=== PATIENT | male | born 1945 | race Caucasian/White ===

== ENCOUNTER 2020-08-01 12:29 | Inpatient (IN) | payer MEDICARE, OTHER ==
[~2020-08-01] VITALS: Ht 172.7 cm; Wt 63.2 kg
--- NOTE | 2020-08-01 12:56 | PHYS DOC ---
Adult General Chief Complaint Chief Complaint: ALTERED MENTAL STATUS HPI HPI Patient is a 74-year-old male presents to the emergency department via EMS. Limited HPI related to patient's history of dementia he related to alcoholism with possible Alzheimer's. HPI given by EMS lens examiner. EMS lens examiner states that patient was admitted to [facility] on 07/30/2020 from [facility] for dementia. EMS lens examiner states they were given a report from [facility] staff that the patient fell twice yesterday and was speaking gibberish incomprehensible words at this morning so they alerted the facility physician who gave him an order to send to the emergency department for evaluation. EMS lens examiner denies knowledge of patient having had or any loss of consciousness. Patient complains of pain all over, denies chest pain, denies shortness of breath, denies congestion. Patient is alert to self only. Patient denies falling, patient is unsure why he was transported to the emergency department today. ED nurse contacted [facility] staff whom stated patient was speaking gibberish this morning, had 2 unwitnessed falls yesterday, was unsure if hit head or not, denies any loss of consciousness of the patient. Review of Systems Review of Systems 14 body systems of review of systems have been reviewed. See HPI for pertinent positives and negative responses, otherwise all other systems are negative, nonpertinent or noncontributory. Physical Exam Physical Exam Constitutional: Well developed, well nourished, no acute distress, non-toxic appearance. Patient is alert to self only. HENT: Normocephalic, atraumatic, bilateral external ears normal, oropharynx moist, no oral exudates, nose normal. Eyes: PERRLA, EOMI, conjunctiva normal, no discharge. No lymphadenopathy noted of the head and neck. Neck: Normal range of motion, no tenderness, supple, no stridor. No nuchal rigidity, no meningismus signs. Cardiovascular:Heart rate regular rhythm, no murmur consultation. Lungs & Thorax: Bilateral breath sounds clear to auscultation all lung cruz. Abdomen: Bowel sounds normal, soft, no tenderness, no masses, no pulsatile masses. Skin: Warm, dry, no erythema, no rash. Back: No tenderness, no CVA tenderness. Except for pain elicited to palpation in coccyx area, skin surface is intact. No crepitus appreciated, no ecchymosis appreciated, no swelling appreciated. Extremities: No tenderness, no cyanosis, no clubbing, ROM intact, no edema. Gait was not assessed, patient in bed. Neurologic: Alert and oriented to self only, normal motor function, normal sensory function, no focal deficits noted. Patient speaking in full sentences, no incomprehensible words appreciated. Psychologic: Affect normal, judgement abnormal, mood normal. Current Patient Data Lab Results Laboratory Tests Test 08/01/20 12:57 White Blood Count 9.5 x10^3/uL Red Blood Count 4.10 x10^6/uL Hemoglobin 14.0 g/dL Hematocrit 41.4 % Mean Corpuscular Volume 101 fL Mean Corpuscular Hemoglobin 34 pg Mean Corpuscular Hemoglobin Concent 34 g/dL Red Cell Distribution Width 12.9 % Platelet Count 330 x10^3/uL Neutrophils (%) (Auto) 73 % Lymphocytes (%) (Auto) 16 % Monocytes (%) (Auto) 11 % Eosinophils (%) (Auto) 0 % Basophils (%) (Auto) 0 % Neutrophils # (Auto) 6.9 x10^3uL Lymphocytes # (Auto) 1.5 x10^3/uL Monocytes # (Auto) 1.1 x10^3/uL Eosinophils # (Auto) 0.0 x10^3/uL Basophils # (Auto) 0.0 x10^3/uL Sodium Level 126 mmol/L Potassium Level 5.0 mmol/L Chloride Level 91 mmol/L Carbon Dioxide Level 24 mmol/L Anion Gap 11 Blood Urea Nitrogen 22 mg/dL Creatinine 1.4 mg/dL Estimated GFR (Cockcroft-Gault) 49.7 Glucose Level 93 mg/dL Calcium Level 9.3 mg/dL Total Bilirubin 0.8 mg/dL Direct Bilirubin 0.3 mg/dL Aspartate Amino Transf (AST/SGOT) 37 U/L Alanine Aminotransferase (ALT/SGPT) 32 U/L Alkaline Phosphatase 86 U/L Troponin I Quantitative 0.026 ng/mL Total Protein 7.0 g/dL Albumin 3.3 g/dL Lipase 169 U/L EKG EKG EKG performed at 1259 by house respiratory therapy staff, atrial fibrillation rate controlled at 72 bpm, QTc interval 0.473, no acute STEMI, no ACS, no acute ischemia appreciated, EKG interpreted by ED attending physician Dr. PUENTES Radiology/Procedures Radiology/Procedures PATIENT: MADY COREA IACCOUNT: [id number] : 1945 LOCATION: ER AGE: 74 SEX: M EXAM STATUS: REG ER ORD. PHYSICIAN: MAYRA RODRIGUEZ APRN REASON: FALL, CONFUSION PROCEDURE: CT PELVIS WO CONTRAST PQRS Compliance Statement: One or more of the following individualized dose reduction techniques were utilized for this examination: 1. Automated exposure control 2. Adjustment of the mA and/or kV according to patient size 3. Use of iterative reconstruction technique CT PELVIS WO Clinical Indication: Reason: FALL, CONFUSION Comparison: None. TECHNIQUE: Helical CT imaging of the pelvis is performed without IV contrast. Findings: There is no acute pelvic fracture. There is no acute fracture or dislocation of the hips. There is mild arthropathy of the hips for patient age. There is mild disc space narrowing and vacuum disc phenomenon of L5/S1. There is a small posterior disc bulge without significant central canal stenosis. Question old fracture of the lower sacrum. Atherosclerotic distal abdominal aorta and common iliac arteries, severe. There is hyperdensity that appears to be oral contrast in the colon. The appendix is normal. Visualized colon is without wall thickening. No dilated small bowel. The urinary bladder is not well distended accentuating the wall thickness. Prostate is mildly enlarged. There is no pelvic free fluid. There is no intramuscular hematoma. IMPRESSION: 1. No acute pelvic or hip fracture. 2. Mild prostatomegaly. Electronically signed by: Cliff Eden MD (08/01/2020 1:46 PM) [id number] DICTATED AND SIGNED BY: CLIFF EDEN MD DATE: 08/01/20 1340 CC: MAYRA RODRIGUEZ APRN; JOHN PUENTES MD; PCP,NO ~MTH0 0 PATIENT: MADY COREA IACCOUNT: [id number] : 1945 LOCATION: ER AGE: 74 SEX: M EXAM STATUS: REG ER ORD. PHYSICIAN: MAYRA RODRIGUEZ APRN REASON: FALL, CONFUSION PROCEDURE: CT CERVICAL SPINE WO CONTRAST PQRS Compliance Statement: One or more of the following individualized dose reduction techniques were utilized for this examination: 1. Automated exposure control 2. Adjustment of the mA and/or kV according to patient size 3. Use of iterative reconstruction technique CT CERVICAL SPINE WITHOUT CONTRAST Clinical Indication: Reason: FALL, CONFUSION / Spl. Instructions: / History: Comparison: None. Technique: Noncontrast helical CT of the cervical spine was performed. Axial, sagittal, and coronal reconstructions were obtained. Findings: Image quality is mildly degraded due to motion artifact. There is no evidence of acute fracture or acute malalignment. There are no perched or jumped facet joints. The facet joints are mild to moderately hypertrophic. There is mild grade 1 anterolisthesis of C2 on C3. The alignment is otherwise maintained. There is disc space narrowing and reactive endplate changes of C6/C7. There are bilateral carotid artery calcifications. The visualized lung apices are clear. IMPRESSION: No acute fracture or malalignment. Electronically signed by: Cliff Eden MD (08/01/2020 1:40 PM) [id number] DICTATED AND SIGNED BY: CLIFF EDEN MD DATE: 08/01/20 1336 CC: MAYRA RODRIGUEZ APRN; JOHN PUENTES MD; PCP,NO ~MTH0 0 PATIENT: MADY COREA ACCOUNT: [id number] : 1945 LOCATION: ER AGE: 74 SEX: M EXAM STATUS: REG ER ORD. PHYSICIAN: JOHN PUENTES MD REASON: ALTERED MENTAL STATUS PROCEDURE: CT HEAD WO CONTRAST EXAM: CT Head without IV contrast INDICATION: Reason: ALTERED MENTAL STATUS / Spl. Instructions: / History: TECHNIQUE: Multi-detector row CT images were obtained of the head without the use of IV contrast. All CT scans performed at this facility utilize dose optimization techniques as appropriate to the exam, including the following: Automated exposure control and adjustment of the mA and/or KV according to patient size (this includes techniques or standardized protocols for targeted exams where dose is indication/reason for exam). COMPARISON: 07/25/[address] FINDINGS: BRAIN PARENCHYMA: No evidence of acute intraparenchymal hemorrhage or infarct. There is generalized parenchymal volume loss and white matter low density compatible chronic ischemic microvascular change VENTRICLES & EXTRA-AXIAL SPACES: Ventricles are within normal limits. Basilar cisterns are patent. No pathologic extra-axial fluid collection or mass. ORBITS: Orbital contents are unremarkable. SINUSES: Visualized paranasal sinuses and mastoid air cells are clear. OSSEOUS & SOFT TISSUES: Calvarium and skull base are intact. IMPRESSION: No acute intracranial pathology. No significant interval change. Atrophy and white matter changes compatible chronic ischemic microvascular disease. EXAM: CT HEAD/BRAIN WO, XR CHEST 1V INDICATION: Reason: ALTERED MENTAL STATUS / Spl. Instructions: / History: . TECHNIQUE: Single view COMPARISON: None FINDINGS: The heart size is normal. The great vessels appear unremarkable. There is no hilar or mediastinal mass. The lungs are clear. There is no pleural effusion or pneumothorax. There are no significant osseous abnormalities. IMPRESSION: No active cardiopulmonary disease. Electronically signed by: Maggie Barahona MD (08/01/2020 1:00 PM) [id number] DICTATED AND SIGNED BY: MAGGIE BARAHONA MD DATE: 08/01/20 1257 CC: JOHN PUENTES MD; PCP,NO ~MTH0 0 Heart Score Risk Factors: Risk Factors: DM, Current or recent (<one month) smoker, HTN, HLP, family history of CAD, obesity. Risk Scores: Risk Factors: DM, Current or recent (<one month) smoker, HTN, HLP, family history of CAD, obesity. Course & Med Decision Making Course & Med Decision Making Pertinent Labs and Imaging studies reviewed. (See chart for details) 74-year-old male, vital signs reviewed, presents to the emergency department via EMS from a local [facility] facility for falls x2 yesterday with altered mental status this morning. Patient's physical exam revealed patient that states he hurts all over however could not elicit any specific pain during ph ysical examination. There were no hematomas or bony abnormalities appreciated. Physical exam patient was alert and oriented to self only. ED work-up initiated, EKG, troponin I, CBC, BMP, hepatic panel, urine analysis assay. CT head and C-spine, 2 view chest x-ray, CT pelvis. Radiology imaging unremarkable, patient's EKG and cardiac enzymes were negative for cardiac abnormalities, there is no pulmonary process appreciated. Patient's sodium hyponatremic at 126 with a chloride of 91. Discussed case with [facility] physician Dr. Wild who agreed to assume patient care for admission to the [facility] telemetry unit with a diagnosis of hyponatremia. Dr. Wild has assumed care at this time. Dragon Disclaimer Dragon Disclaimer This electronic medical record was generated, in whole or in part, using a voice recognition dictation system. Departure Departure: Impression: Primary Impression: Hyponatremia Additional Impression: Dementia Disposition: DC HOME SELF CARE/HOMELESS Admitting Physician: Kevin Wild (Admit to Dr. Wild to telemetry unit) Condition: GUARDED Referrals: PCP,NO (PCP) Problem Qualifiers Additional Impression: Dementia Dementia type: unspecified type Dementia behavioral disturbance: without behavioral disturbance Qualified Codes: F03.90 - Unspecified dementia without behavioral disturbance MAYRA RODRIGUEZ APRN Aug 01, 2020 12:56
--- NOTE | 2020-08-01 13:02 | RAD ---
EXAM: CT Head without IV contrast INDICATION: Reason: ALTERED MENTAL STATUS / Spl. Instructions: / History: TECHNIQUE: Multi-detector row CT images were obtained of the head without the use of IV contrast. All CT scans performed at this facility utilize dose optimization techniques as appropriate to the exam, including the following: Automated exposure control and adjustment of the mA and/or KV according to patient size (this includes techniques or standardized protocols for targeted exams where dose is ind ication/reason for exam). COMPARISON: 07/25/[address] FINDINGS: BRAIN PARENCHYMA: No evidence of acute intraparenchymal hemorrhage or infarct. There is generalized p arenchymal volume loss and white matter low density compatible chronic ischemic microvascular change VENTRICLES & EXTRA-AXIAL SPACES: Ventricles are within normal limits. Basilar cisterns are patent. N o pathologic extra-axial fluid collection or mass. ORBITS: Orbital contents are unremarkable. SINUSES: Visualized paranasal sinuses and mastoid air cells are clear. OSSEOUS & SOFT TISSUES: Calvarium and skull base are intact. IMPRESSION: No acute intracranial pathology. No significant interval change. Atrophy and white matter changes compatible chronic ischemic microvascular disease. EXAM: CT HEAD/BRAIN WO, XR CHEST 1V INDICATION: Reason: ALTERED MENTAL STATUS / Spl. Instructions: / History: . TECHNIQUE: Single view COMPARISON: None FINDINGS: The heart size is normal. The great vessels appear unremarkable. There is no hilar or mediastinal mass. The lungs are clear. There is no pleural effusion or pneumothorax. There are no significant osseous abnormalities. IMPRESSION: No active cardiopulmonary disease. Electronically signed by: Dior Barahona MD (08/01/2020 1:00 PM) [id number]
--- NOTE | 2020-08-01 13:11 | EKG ---
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
[2020-08-01 13:22] LABS: BASO % 0 % (0-3); EOS % 0 % (0-3); HEMATOCRIT 41.4 % (39.0-53.0); LYMPH # 1.5 x10^3/uL (1.0-4.8); LYMPH % 16 % (24-48); MEAN CORPUSCULAR HEMOGLOBIN 34 pg (25-35); MEAN CORPUSCULAR HGB CONC 34 g/dL (31-37); MEAN CORPUSCULAR VOLUME 101 fL (79-100); MONO # 1.1 x10^3/uL (0.0-1.1); MONO % 11 % (0-9); NEUT # 6.9 x10^3uL (1.8-7.7); NEUT % 73 % (31-73); PLATELET COUNT 330 x10^3/uL (140-400); RED CELL DISTRIBUTION WIDTH 12.9 % (11.5-14.5); WHITE BLOOD COUNT 9.5 x10^3/uL (4.0-11.0)
[2020-08-01 13:33] LABS: CALCIUM 9.3 mg/dL (8.5-10.1); CREATININE 1.4 mg/dL (0.7-1.3); GFR 49.7
[2020-08-01 13:39] LABS: ALBUMIN 3.3 g/dL (3.4-5.0); DIRECT BILIRUBIN 0.3 mg/dL (0.0-0.2); TOTAL BILIRUBIN 0.8 mg/dL (0.2-1.0)
--- NOTE | 2020-08-01 13:43 | RAD ---
PQRS Compliance Statement: One or more of the following individualized dose reduction techniques were utilized for this examinat ion: 1. Automated exposure control 2. Adjustment of the mA and/or kV according to patient size 3. Use of iterative reconstruction technique CT CERVICAL SPINE WITHOUT CONTRAST Clinical Indication: Reason: FALL, CONFUSION / Spl. Instructions: / History: Comparison: None. Technique: Noncontrast helical CT of the cervical spine was performed. Axial, sagittal, and coronal reconstructions were obtained. Findings: Image quality is mildly degraded due to motion artifact. There is no evidence of acute fracture or acute malalignment. There are no perched or jumped facet joints. The facet joints are mild to moderately hypertrophic. Th ere is mild grade 1 anterolisthesis of C2 on C3. The alignment is otherwise maintained. There is disc space narrowing and reactive endplate changes of C6/C7. There are bilateral carotid artery calcifications. The visualized lung apices are clear. IMPRESSION: No acute fracture or malalignment. Electronically signed by: Cliff Eden MD (08/01/2020 1:40 PM) [id number]
--- NOTE | 2020-08-01 13:48 | RAD ---
PQRS Compliance Statement: One or more of the following individualized dose reduction techniques were utilized for this examinat ion: 1. Automated exposure control 2. Adjustment of the mA and/or kV according to patient size 3. Use of iterative reconstruction technique CT PELVIS WO Clinical Indication: Reason: FALL, CONFUSION Comparison: None. TECHNIQUE: Helical CT imaging of the pelvis is performed without IV contrast. Findings: There is no acute pelvic fracture. There is no acute fracture or dislocation of the hips. There is mi ld arthropathy of the hips for patient age. There is mild disc space narrowing and vacuum disc phenom enon of L5/S1. There is a small posterior disc bulge without significant central canal stenosis. Ques tion old fracture of the lower sacrum. Atherosclerotic distal abdominal aorta and common iliac arteries, severe. There is hyperdensity that appears to be oral contrast in the colon. The appendix is normal. Visualized colon is without wall th ickening. No dilated small bowel. The urinary bladder is not well distended accentuating the wall thi ckness. Prostate is mildly enlarged. There is no pelvic free fluid. There is no intramuscular hematom a. IMPRESSION: 1. No acute pelvic or hip fracture. 2. Mild prostatomegaly. Electronically signed by: Cliff Eden MD (08/01/2020 1:46 PM) [id number]
[2020-08-01] MEDS ORDERED: IV NORMAL SALINE 1,000ML 1,000 ML IV ONE (14:30)
[2020-08-01 16:28] VITALS: BP 121/75
--- NOTE | 2020-08-01 17:21 | NUR ---
NSG NOTE; ADMISSION ADMIT TO ROOM 124 AT 1608 FROM ED VIA CART ACCOMP BY EMS PERSONNEL AFTER HAVING FALLS AT [facility]
--- NOTE | 2020-08-01 17:22 | NUR ---
NSG NOTE; PHONE CONTACT WITH URSZULA SEAMAN CALLED AND GIVEN PASS CODE SHE STATES PT IS A DRINKER OF MULTIPLE BEERS NIGHTLY AND HAS BEEN REFUSING TO EAT. HE WAS ADMITTED TO [facility] ON 07/25/20 AND WENT THROUGH ETOH WITHDRAWAL THERE. HE WAS PLACED ON 07/30/20 AT [facility] FOR [facility]ICAL REHAB WITH INTENT TO RETURN HOME WITH HIS
--- NOTE | 2020-08-01 18:31 | HP ---
ADMIT DATE: 08/01/2020 ADDENDUM I got a hold of records from the [facility] in [place], [facility]. It turns out the patient is on Lasix 20 mg daily in addition to Aricept, trazodone, aspirin and lisinopril 20 mg daily. These medications have been held; diuretics have been held. We will monitor his serial chemistries related to his low sodium. CONNIE OWEN MD DR: DELONTE/regine JOB#: [id number] / [id number]
--- NOTE | 2020-08-01 18:34 | HP ---
ADMIT DATE: 08/01/2020 ATTENDING PHYSICIAN: Dr. Owen. CHIEF COMPLAINT: Altered mentation. HISTORY OF PRESENT ILLNESS: The patient is a 74-year-old gentleman recently discharged 2 days ago from [facility]. He is a chronic alcoholic. He had alcohol withdrawal related issues. According to the , he is very confused. He went to the alf at [facility] for the last 2 days. He was brought in today with altered mentation and confusion. His language is speaking gibberish and incomprehensible words, so they decided to send him to the Emergency Department for evaluation. He had laboratory studies, which showed diminished sodium 126 mEq per liter, underlying issue is related to his Wernicke-Korsakoff syndrome with chronic alcoholism. The obligatory CT of the head showed no significant intracranial pathology. Cervical spine films were unremarkable. There are bilateral carotid artery calcifications. No acute fractures or misalignment. Chest x-ray showed clear lung cruz without any active pulmonary disease and pelvic CT to rule out broken bones showed no acute pelvic or hip fractures. He has prostatomegaly seen on the plain films. The patient is admitted then to the hospital for treatment of his hyponatremia, no other family members available. ALLERGIES: The patient has no recorded drug allergies. CURRENT MEDICATIONS: Reviewed from the alf included the following: He was getting normal saline. I do not have the exact dosages and record of his medications. We are in the process of determining that. I found he was not on a diuretic. FAMILY HISTORY: Unobtainable. REVIEW OF SYSTEMS: Unobtainable due to the patient's condition. He is quite demented. PHYSICAL EXAMINATION: GENERAL: When I saw him, this is a chronically ill-appearing gentleman. INITIAL VITAL SIGNS: Showed blood pressure 121/75, pulse is 72 and regular. He is afebrile. Oxygen saturation 97% on room air. HEENT: Head is without trauma. Pupils are reactive. Sclerae nonicteric. Oropharynx is clear. NECK: Supple. No stridor. LUNGS: Shallow respirations. CARDIOVASCULAR: Showed regular heart tones. No gallops. ABDOMEN: Soft. Minimal guarding, no rebound tenderness. EXTREMITIES: Show trace edema. NEUROLOGIC: His speech is fluent, but he was confused, not aware of person, place or time. SKIN: Otherwise warm and dry. We could not assess his gait at this time. LABORATORY DATA: Admission hemoglobin was 14.0 g/dL with a white count of 9500. Serum sodium is 126 mEq, potassium 5.0, and creatinine 1.4 mg percent. Bilirubin is 0.3. Troponins were unremarkable. IMAGING STUDIES: As noted. ASSESSMENT: 1. A 74-year-old gentleman with altered mentation due to underlying Wernicke-Korsakoff syndrome. 2. Chronic alcoholism. He was drinking up until last week. 3. Profound dementia related to alcohol use. 4. Hyponatremia, which may or may not explain his issues. PLAN: 1. Admit to the inpatient unit. 2. Gentle IV hydration with saline. 3. Serial chemistries. 4. I will review his medication to ascertain his scheduled meds. 5. I will call the family tomorrow to ascertain his code status. His prognosis is guarded. CONNIE OWEN MD DR: DELONTE/regine JOB#: [id number] / [id number]
[2020-08-01 19:45] VITALS: BP 120/70
[2020-08-01 23:39] VITALS: BP 130/69
[2020-08-02] MEDS ORDERED: ONDA4TAB7 PO (02:56)
[2020-08-02] MEDS ORDERED: METO25TA4 PO (02:56)
[2020-08-02] MEDS ORDERED: LISI20TA18 PO (02:56)
[2020-08-02] MEDS ORDERED: CHOL400T36 PO (02:56)
[2020-08-02] MEDS ORDERED: TRAZ-120 PO (02:56)
[2020-08-02] MEDS ORDERED: DEXA6TAB6 PO (02:56)
[2020-08-02] MEDS ORDERED: BUPR100T11 PO (02:56)
[2020-08-02] MEDS ORDERED: ATOR40TA59 PO (02:56)
[2020-08-02] MEDS ORDERED: POTA20TA4 PO (02:56)
[2020-08-02] MEDS ORDERED: MAGN400T17 PO (02:56)
[2020-08-02] MEDS ORDERED: PANT40TA3 PO (02:56)
[2020-08-02] MEDS ORDERED: DOCU100C28 PO (02:56)
[2020-08-02] MEDS ORDERED: ASPI-630 PO (02:56)
[2020-08-02 05:27] VITALS: BP 131/80
--- NOTE | 2020-08-02 06:14 | NUR ---
Pt awake most of night watching television. Pt has a dry cough and moans occasionally. He c/o his feet hurting; requested a pillow to put under his legs and ankles. Pt ambulates to the toilet x2 assist with gait belt. He is very unsteady and grabs onto whatever miller or furniture is around. Pt insists on standing to urinate despite nursing staff efforts to encourage him to sit. Pt able to stand safely with gait belt and staff support. Will continue to monitor.
[2020-08-02 08:04] LABS: CALCIUM 8.6 mg/dL (8.5-10.1); CREATININE 0.8 mg/dL (0.7-1.3); GFR 94.8; POTASSIUM 4.1 mmol/L (3.5-5.1)
--- NOTE | 2020-08-02 11:01 | DS ---
DATE OF DISCHARGE: 08/02/2020 ATTENDING PHYSICIAN: Dr. Owen. FINAL DISCHARGE DIAGNOSES: 1. Altered mentation, resolved. 2. Hyponatremia, corrected. 3. Chronic alcoholism. 4. Profound dementia. 5. Wernicke-Korsakoff syndrome. 6. Essential hypertension. HISTORY AND PHYSICAL: The patient is a 74-year-old gentleman recently admitted to [facility]. He was drinking heavily up until then, he had withdrawal symptoms. [facility] was [facility] to [facility] just 2 days ago. He was sent from there to the Emergency Room with altered mentation and confusion. Admission sodium was measured 126 mEq. No intracranial pathology on CT. He was admitted for further treatment and evaluation. PHYSICAL EXAMINATION: Please see my dictated note. PERTINENT LABORATORY AND X-RAY STUDIES: Admission sodium is 126 mEq per liter, repeated the next day with hydration is up to 130 mEq per liter. Creatinine 0.8 mg/dL. Hemoglobin 14.0, white count 9500. COURSE IN THE HOSPITAL: The patient was admitted. He was started on gentle IV hydration. We held his lisinopril and diuretic. He did well. He woke up and was fairly alert. By the next hospital day, he was eating adequately. Responses were appropriate, but he still remained quite weak. We are trying to get him to go back to [facility] to continued rehabilitation and strengthening. I think the family would be agreeable at this time. His discharge meds include aspirin daily, Lipitor, bupropion, lisinopril 20 mg daily, metoprolol, Protonix, and potassium supplementation. In the meantime, I took the liberty of holding his trazodone, magnesium, docusate, cholecalciferol, and Decadron. He was discharged then from our hospital in stable condition with explicit instructions involved care. CONNIE OWEN MD DR: DELONTE/regine JOB#: [id number] / [id number] [facility] [place]
--- NOTE | 2020-08-02 11:46 | NUR ---
PATIENT IS DISCHARGED BACK TO [facility]. PT HAS ALL BELONGINGS WITH SELF AT TIME OF DISCHARGE. PT IS STABLE AT TIME OF DISCHARGE. TELE MONITOR REMOVED. IV REMOVE. PT IS W/C OFF OF UNIT ACCOMPANIED BY STAFF.
== END 2020-08-02 11:46 | DRG 640 ==
LOC: ER 12:29 → 1 SOUTH 14:00
PROVIDERS: ADMIT Hospitalist; ATTEND Hospitalist
DX: E87.1 Hypo-osmolality and hyponatremia (principal); G93.41 Metabolic encephalopathy; F10.239 Alcohol dependence with withdrawal, unspecified; F10.27 Alcohol dependence with alcohol-induced persisting dementia; F10.26 Alcohol dependence with alcohol-induced persisting amnestic disorder; I10 Essential (primary) hypertension; N40.0 Benign prostatic hyperplasia without lower urinary tract symptoms; W19.XXXA Unspecified fall, initial encounter; F04 Amnestic disorder due to known physiological condition; F03.90 Unspecified dementia, unspecified severity, without behavioral disturbance, psychotic disturbance, mood disturbance, and anxiety; Y92.129 Unspecified place in nursing home as the place of occurrence of the external cause; Z79.82 Long term (current) use of aspirin; Z79.899 Other long term (current) drug therapy
CPT/HCPCS: 36415; 70450; 71045; 72125; 72192; 80048; 80076; 83690; 84484; 85025; 93005; 96360; 99285-25; J7030

== ENCOUNTER 2020-08-15 01:19 | Observation (INO) | payer MEDICARE, OTHER ==
[~2020-08-15] VITALS: Ht 172.7 cm; Wt 63.8 kg
[~2020-08-15 01:19] MED LIST: ASPI-630 PO; ATOR40TA59 PO; BUPR100T11 PO; CHOL400T36 PO; DEXA6TAB6 PO; DOCU100C28 PO; LISI20TA18 PO; MAGN400T17 PO; METO25TA4 PO; ONDA4TAB7 PO; PANT40TA3 PO; POTA20TA4 PO; TRAZ-120 PO
--- NOTE | 2020-08-15 01:22 | PHYS DOC ---
Past History Past Medical History: Alcoholism, Anemia, CAD, CHF, COPD, Dementia, High Cholesterol, Hypertension, Prostatitis, Other Additional Past Medical Histor: ETOH ABUSE Past Surgical History: Other Additional Past Surgical Histo: UNKNOWN Smoking: Cigarettes Alcohol Use: Sober General Adult HPI: HPI: ".. I got some generalized chest pain.. it started just before coming here... 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 There is no radiation. Patient rates pain currently a 5-6 out of 10. Patient reportedly came from home. No history of fall or injury. No change in meds. Did take a nitro prior to arrival. The patient does have a history of previous cardiac issues and myocardial infarction which he received 2 stents. 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 Patient does have history of enlarged prostate, episodes of hyponatremia, TIAs, hypertension, hypothyroidism, CHF, dementia,GERD, and deconditioning. Patient does continue to smoke. [facility] Review of Systems: Review of Systems: Constitutional: Denies fever or chills Eyes: Denies change in visual acuity HENT: Denies nasal congestion or sore throat Respiratory: Denies cough or shortness of breath Cardiovascular: Complains of central generalized chest pain GI: Denies abdominal pain, nausea, vomiting, bloody stools or diarrhea : Denies dysuria Musculoskeletal: Denies back pain or joint pain Integument: Denies rash Neurologic: Denies headache, focal weakness or sensory changes Endocrine: Denies polyuria or polydipsia Lymphatic: Denies swollen glands Psychiatric: Denies depression or anxiety Family History: Family History: Noncontributory to presentation Current Medications: Current Meds: See nursing for home medications Allergies: Allergies: Allergies Coded Allergies Type Severity Reaction Last Updated Verified No Known Drug Allergies 08/01/20 No Physical Exam: PE: Constitutional: Moderate acute distress, non-toxic appearance. [] HENT: Normocephalic, atraumatic, bilateral external ears normal, oropharynx moist, no oral exudates, nose normal. [] Eyes: PERRLA, EOMI, conjunctiva normal, no discharge. [] Neck: Normal range of motion, no tenderness, supple, no stridor. [] Cardiovascular:Heart rate regular rhythm, no murmur []Monitor shows sinus, occasional PVC's Lungs & Thorax: Bilateral breath sounds equal apex on auscultation [] Abdomen: Bowel sounds normal, soft, no tenderness, no masses, no pulsatile masses. [] Skin: Warm, dry, no erythema, no rash.. Poor turgor Back: No tenderness, no CVA tenderness. [] Extremities: No tenderness, no cyanosis, no clubbing, ROM intact, no edema. Arthritic changes. No cording appreciated Neurologic: Alert and oriented X 3, normal motor function, normal sensory function, no focal deficits noted. [] Psychologic: Affect anxious, judgement normal, mood normal. [] EKG: EKG: My interpretation of EKG shows a sinus rhythm at 87 bpm. Does have an occasional PVC. There is intraventricular conduction delay. But no findings of acute STEMI of contralateral changes. [] Radiology/Procedures: Radiology/Procedures: [address] [place] [address] IMAGING REPORT Signed PATIENT: MADY COREA IACCOUNT: [id number] : 1945 LOCATION: [address] [place] [address] AGE: 74 SEX: M EXAM STATUS: ADM IN ORD. PHYSICIAN: LARY GALAVIZ MD REASON: Chest pain, short of air Omni 350 100cc PROCEDURE: CT ANGIOGRAPHY CHEST CTA scan of the Chest with Contrast (Pulmonary Embolism protocol) 08/15/2020 Clinical History: Chest pain and shortness of breath. Technique: After the intravenous administration of 100 cc of Omnipaque 350, contiguous, 0.625 mm axial sections were obtained through the chest. 3 mm mm axial and 3D MIP coronal and sagittal reconstructed images were obtained. One or more of the following individualized dose reduction techniques were utilized for this study: 1. Automated exposure control. 2. Adjustment of the mA and/or kV according to patient size. 3. Use of iterative reconstruction technique. Findings: Comparison is made to patient's portable chest radiograph performed earlier today. No filling defect is seen within the major branches of either pulmonary artery. There is no CT evidence of pulmonary embolism. The heart is normal in size. A sclerotic calcification thoracic aorta is seen. The thoracic aorta is tortuous but tapers normally. Extensive coronary artery calcifications are seen. Linear bands of subsegmental atelectasis is seen involving both lower lobes along with the lingula. No area of consolidation is seen. No pleural effusion or pneumothorax is seen. Impression: There is no CT evidence of pulmonary embolism. Electronically signed by: Doni Boyd MD (08/15/2020 5:20 AM) [id number] DICTATED AND SIGNED BY: DONI BOYD MD DATE: 08/15/20516 CC: LARY GALAVIZ MD; CONNIE OWEN MD; NON,STAFF ~MTH0 IMAGING REPORT Signed PATIENT: MADY COREA IACCOUNT: [id number] : 1945 LOCATION: ER AGE: 74 SEX: M EXAM STATUS: PRE ER ORD. PHYSICIAN: LARY GALAVIZ MD REASON: Chest pain PROCEDURE: PORTABLE CHEST 1V AP portable chest radiograph 08/15/2020 Clinical History: Chest pain. An AP erect portable digital radiograph of the chest was obtained. Comparison study is dated 08/01/2020. The cardiac silhouette is normal in size. The thoracic aorta is tortuous. Atherosclerotic calcification of the thoracic aorta is seen. No acute pulmonary infiltrate is noted. No pneumothorax or pleural effusion is seen. The osseous structures are unchanged. Impression: No acute abnormality is seen. Electronically signed by: Doni Boyd MD (08/15/2020 2:08 AM) [id number] DICTATED AND SIGNED BY: DONI BOYD MD DATE: 08/15/20206 CC: LARY GALAVIZ MD; PCP,NO ~MTH0 0 Heart Score: HEART Score for Chest Pain: HEART Score for Chest Pain Response (Comments) Value History Moderately Suspicious 1 ECG Nonspecific Repolarizatio 1 Age > 65 2 Risk Factors 1 or 2 Risk Factors 1 Total 5 Risk Factors: Risk Factors: DM, Current or recent (<one month) smoker, HTN, HLP, family history of CAD, obesity. Risk Scores: Score 0 - 3: 2.5% MACE over next 6 weeks - Discharge Home Score 4 - 6: 20.3% MACE over next 6 weeks - Admit for Clinical Observation Score 7 - 10: 72.7% MACE over next 6 weeks - Early Invasive Strategies Course & Med Decision Making: Course & Med Decision Making Pertinent Labs and Imaging studies reviewed. (See chart for details) Discussed presentation, testing and treatment plan with . Advised to admit to his service, observation status, telemetry. Impression: 1. Chest Pain 2. Hyponatremia 128 3. History of coronary artery disease-stents x2 4. Elevated D-dimer 1.82 5. Malnutrition Alb. 2.6 [] Dragon Disclaimer: Dragon Disclaimer: This electronic medical record was generated, in whole or in part, using a voice recognition dictation system. Departure Departure: Referrals: PCP,NO (PCP) Dragon Disclaimer This chart was dictated in whole or in part using Voice Recognition software in a busy, high-work load, and often noisy Emergency Department environment. It may contain unintended and wholly unrecognized errors or omissions. Dragon Disclaimer This chart was dictated in whole or in part using Voice Recognition software in a busy, high-work load, and often noisy Emergency Department environment. It may contain unintended and wholly unrecognized errors or omissions. LARY GALAVIZ MD Aug 15, 2020 01:22
[2020-08-15] MEDS ORDERED: IV RINGERS SOLUTION,LACTATED 1,000 ML IV SCH (01:30)
[2020-08-15] MEDS ORDERED: ASPIRIN CHEWABLE 81 MG TABLET. PO ONE (01:30)
[2020-08-15] MEDS ORDERED: FAMOTIDINE 20 MG/2 ML VIAL IVP ONE (02:00)
[2020-08-15 02:04] LABS: BASO % 1 % (0-3); EOS # 0.1 x10^3/uL (0.0-0.7); EOS % 2 % (0-3); HEMATOCRIT 32.7 % (39.0-53.0); HEMOGLOBIN 11.2 g/dL (13.0-17.5); LYMPH # 2.1 x10^3/uL (1.0-4.8); LYMPH % 34 % (24-48); MEAN CORPUSCULAR HEMOGLOBIN 34 pg (25-35); MEAN CORPUSCULAR HGB CONC 34 g/dL (31-37); MEAN CORPUSCULAR VOLUME 99 fL (79-100); MONO # 0.7 x10^3/uL (0.0-1.1); MONO % 12 % (0-9); NEUT # 3.3 x10^3uL (1.8-7.7); NEUT % 52 % (31-73); PLATELET COUNT 264 x10^3/uL (140-400); RED BLOOD COUNT 3.29 x10^6/uL (4.30-5.70); RED CELL DISTRIBUTION WIDTH 12.5 % (11.5-14.5); WHITE BLOOD COUNT 6.3 x10^3/uL (4.0-11.0)
--- NOTE | 2020-08-15 02:10 | RAD ---
AP portable chest radiograph 08/15/2020 Clinical History: Chest pain. An AP erect portable digital radiograph of the chest was obtained. Comparison study is dated 08/01/2020. The cardiac silhouette is normal in size. The thoracic aorta is tortuous. Atherosclerotic calcificati on of the thoracic aorta is seen. No acute pulmonary infiltrate is noted. No pneumothorax or pleural effusion is seen. The osseous structures are unchanged. Impression: No acute abnormality is seen. Electronically signed by: Doni Boyd MD (08/15/2020 2:08 AM) [id number]
[2020-08-15] MEDS ORDERED: NITROGLYCERIN OINT 1 GM PACKET. TP ONE ×2 (02:15→04:00)
[2020-08-15] MEDS ORDERED: MORPHINE SULFATE 2 MG/ML DISP.SYRIN. IV ONE (02:15)
[2020-08-15] MEDS ORDERED: ENOXAPARIN ** NOTE DOSE ** SYRINGE SQ ONE ×2 (02:15→06:00)
[2020-08-15 02:16] LABS: CALCIUM 8.3 mg/dL (8.5-10.1); CREATININE 0.8 mg/dL (0.7-1.3); GFR 94.8; POTASSIUM 3.6 mmol/L (3.5-5.1)
--- NOTE | 2020-08-15 02:26 | EKG ---
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
[2020-08-15 02:29] LABS: ALBUMIN 2.6 g/dL (3.4-5.0); DIRECT BILIRUBIN 0.1 mg/dL (0.0-0.2); MAGNESIUM 1.1 mg/dL (1.8-2.4); TOTAL BILIRUBIN 0.3 mg/dL (0.2-1.0); TOTAL PROTEIN 5.5 g/dL (6.4-8.2)
[2020-08-15] MEDS ORDERED: MORPHINE SULFATE 2 MG/ML DISP.SYRIN. IVP PRN (03:00)
[2020-08-15] MEDS ORDERED: ONDANSETRON PF 4 MG/2 ML VIAL. IVP PRN (03:00)
[2020-08-15] MEDS ORDERED: IV NORMAL SALINE 1,000ML 1,000 ML IV ONE (03:00)
[2020-08-15] MEDS ORDERED: ACETAMINOPHEN 325 MG TABLET PO PRN (03:00)
[2020-08-15 03:38] VITALS: BP 139/73
[2020-08-15] MEDS ORDERED: CETI10TA16 PO (03:58)
[2020-08-15] MEDS ORDERED: PRIM50TA24 PO (03:58)
[2020-08-15] MEDS ORDERED: NITR0.4T22 SL (03:58)
[2020-08-15] MEDS ORDERED: DONE10TA7 PO (03:58)
[2020-08-15] MEDS ORDERED: FURO20TA3 PO (03:58)
[2020-08-15] MEDS ORDERED: LEVO50TA5 PO (03:58)
[2020-08-15] MEDS ORDERED: TERA5CAP3 PO (03:58)
[2020-08-15] MEDS ORDERED: CONTRAST GIVEN. MC PRN (04:00)
[2020-08-15] MEDS ORDERED: IOHEXOL 350 MG/ML 100 ML VIAL. IV ONE (04:00)
--- NOTE | 2020-08-15 04:41 | NUR ---
The patient, MADY COREA I, 74 y/o, M admitted by CONNIE OWEN MD, was given written information regarding hospital policies, unit procedures and contact persons. Valuables were checked and vital signs noted. Lab and imaging obtained at admission to floor following assessment. PT is currently without chest pain. Reviewed with PT his PMH, PSH, SH, FH and medications. PT is a poor historian and most history is obtained from previous visit and medication use. PT's daughter completed a medication sheet prior to arrival. Medications have been reconciled from this list. PT is unsure of what medications he takes daily. PT states his last alcoholic drink was at dinner the night prior. PT states he drinks daily because "some days I just need to sleep". Telemetry applied. PT is NSR with frequent PVCs. PT treated for COVID last admission. PT had been at [facility]. PT is currently living at home with his .
[2020-08-15 05:04] VITALS: BP 146/86
--- NOTE | 2020-08-15 05:23 | RAD ---
CTA scan of the Chest with Contrast (Pulmonary Embolism protocol) 08/15/2020 Clinical History: Chest pain and shortness of breath. Technique: After the intravenous administration of 100 cc of Omnipaque 350, contiguous, 0.625 mm axia l sections were obtained through the chest. 3 mm mm axial and 3D MIP coronal and sagittal reconstruct ed images were obtained. One or more of the following individualized dose reduction techniques were utilized for this study: 1. Automated exposure control. 2. Adjustment of the mA and/or kV according to patient size. 3. Use of iterative reconstruction technique. Findings: Comparison is made to patient's portable chest radiograph performed earlier today. No filling defect is seen within the major branches of either pulmonary artery. There is no CT eviden ce of pulmonary embolism. The heart is normal in size. A sclerotic calcification thoracic aorta is se en. The thoracic aorta is tortuous but tapers normally. Extensive coronary artery calcifications are seen. Linear bands of subsegmental atelectasis is seen involving both lower lobes along with the lingula. N o area of consolidation is seen. No pleural effusion or pneumothorax is seen. Impression: There is no CT evidence of pulmonary embolism. Electronically signed by: Doni Boyd MD (08/15/2020 5:20 AM) [id number]
[2020-08-15] MEDS ORDERED: ASPIRIN CHEWABLE 81 MG TABLET. PO SCH (08:00)
[2020-08-15] MEDS ORDERED: IPRATRPIUM/ALBUTEROL 0.5/2.5MG 3 ML NEBU. NEB SCH (08:00)
[2020-08-15] MEDS ORDERED: FAMOTIDINE 20 MG/2 ML VIAL IVP SCH (09:00)
--- NOTE | 2020-08-15 09:13 | HP ---
ADMIT DATE: 08/15/2020 ATTENDING PHYSICIAN: Dr. Owen. CHIEF COMPLAINT: Chest pain, nonexertional. HISTORY OF PRESENT ILLNESS: The patient is a 74-year-old gentleman well known to us from previous radiation. He presented with centralized chest pain, most likely noncardiac in nature. No recent falls, trauma, or COVID exposure. He has had previous cardiac history of 2 stents. He was admitted then for further evaluation and serial cardiac enzymes. Unfortunately, he continues to drink heavily. He has Wernicke-Korsakoff syndrome due to alcohol abuse. He has gastroesophageal reflux disease along with mild chronic hyponatremia, TIAs, hypertension, hypothyroidism, congestive heart failure, dementia, GERD, generalized debilitation and COPD. He normally follows up at the [facility] FAMILY HISTORY: Unobtainable. SOCIAL HISTORY: Smoker and drinker as noted. He is nonambulatory. 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 CURRENT MEDICATIONS: Reviewed. He takes scheduled cetirizine, Aricept, Lasix, Synthroid, lisinopril, nitroglycerin, Mysoline, and Hytrin. ALLERGIES: He has no known drug allergies. Smoking and drinking history noted. FAMILY HISTORY: Unobtainable. REVIEW OF SYSTEMS: Unobtainable due to the patient's confusion. PHYSICAL EXAMINATION: GENERAL: When I saw him, this is a pleasant, but confused elderly gentleman. INITIAL VITAL SIGNS: Showed a blood pressure of 146/86, pulse 77 and regular, temperature 97.3 degrees Fahrenheit, oxygen saturation 98% on room air. HEENT: Head is without trauma. Pupils are reactive. Sclerae nonicteric. Oropharynx clear. NECK: Supple, no bruits. LUNGS: Clear. CARDIOVASCULAR: Showed regular heart tones. No gallops. ABDOMEN: Soft, no guarding or rebound tenderness. EXTREMITIES: Without edema. NEUROLOGIC: Pleasantly confused. He is nonambulatory. Speech is fluent. He has no focal senior patient account representative or strength deficiency. SKIN: Warm and dry. PERTINENT LABORATORY STUDIES: Hemoglobin 11.2 g/dL, white count 6300. Electrolytes: Sodium 128 mEq, creatinine 0.8 mg percent. His first set of cardiac enzymes were negative for coronary ischemia. ASSESSMENT: 1. A 74-year-old gentleman with chest pain, most likely gastroesophageal reflux, aggravated by alcohol and tobacco. 2. Chronic alcoholism. 3. Chronic obstructive pulmonary disease. 4. Wernicke-Korsakoff syndrome. 5. Type 2 diabetes. PLAN: 1. Observation status. 2. Serial enzymes. 3. We will start him on proton pump inhibitor. 4. Serial cardiac enzymes. 5. Discharge planning if the enzymes are negative. CONNIE OWEN MD DR: DELONTE/regine JOB#: [id number] / [id number]
--- NOTE | 2020-08-15 09:40 | NUR ---
PT IS DISCHARGED HOME WITH SELF CARE. PT IS STABLE AT TIME OF DISCHARGE. IV AND TELE REMOVED. PT IS GIVEN FOLLOW UP INSTRUCTIONS WELL HARD SCRIPTS FOR POTASSIUM AND NEXIUM. PT IS ESCORTED OFF OF UNIT ACCOMPANIED BY EMS.
--- NOTE | 2020-08-15 09:46 | DS ---
DATE OF DISCHARGE: 08/15/2020 ATTENDING PHYSICIAN: Dr. Owen. FINAL DISCHARGE DIAGNOSES: 1. Alcoholic gastritis. 2. Chest pain. Myocardial ischemia ruled out. 3. Wernicke-Korsakoff syndrome. 4. Chronic alcoholism. 5. Chronic obstructive pulmonary disease. 6. Type 2 diabetes. 7. Hyponatremia, asymptomatic. HISTORY AND PHYSICAL: This pleasant 74-year-old gentleman is well known to us from previous admission. He continues to smoke and drink. He was admitted with chest pain, rule out coronary ischemia. PHYSICAL EXAMINATION: Please see the dictated note. PERTINENT LABORATORY AND X-RAY STUDIES: CBC and chemistry panel unremarkable. Sugars under good control. Three sets of cardiac enzymes were negative for coronary ischemia. EKG is nondiagnostic. COURSE IN THE HOSPITAL: The patient was admitted. Serial enzymes were drawn. He had no further symptoms. He was better and back to his baseline. Strong encouragement to use e-cigarettes. His is the primary virtualization engineer. She is also a smoker and a drinker and unfortunately enabled his use. I had a long discussion with him. It is up to her to curtail his usage, whether or not he will cut back drinking or smoking remains to be seen. In any event, he was discharged home the next day, he was medically stable. No COVID exposure. I recommended some Protonix 40 mg p.o. daily. In addition, no changes on the home meds including the following: He should continue his cetirizine, Aricept, Lasix, Synthroid, lisinopril, nitroglycerin, Mysoline, and Hytrin dose is unchanged. His prognosis is quite guarded. He was discharged then from our hospital in stable condition with explicit instructions and followup care. Total discharge time spent 38 minutes. CONNIE OWEN MD DR: DELONTE/regine JOB#: [id number] / [id number] [place]
== END 2020-08-15 09:40 | disposition home or self-care (01) ==
LOC: ER 01:19 → 1 SOUTH 02:50
PROVIDERS: ADMIT Hospitalist; ATTEND Hospitalist
DX: R07.89 Other chest pain (principal); I11.0 Hypertensive heart disease with heart failure; I50.9 Heart failure, unspecified; F10.20 Alcohol dependence, uncomplicated; J44.9 Chronic obstructive pulmonary disease, unspecified; F04 Amnestic disorder due to known physiological condition; E11.9 Type 2 diabetes mellitus without complications; I25.10 Atherosclerotic heart disease of native coronary artery without angina pectoris; D64.9 Anemia, unspecified; F03.90 Unspecified dementia, unspecified severity, without behavioral disturbance, psychotic disturbance, mood disturbance, and anxiety; F17.210 Nicotine dependence, cigarettes, uncomplicated; E78.00 Pure hypercholesterolemia, unspecified; N41.9 Inflammatory disease of prostate, unspecified; R74.8 Abnormal levels of other serum enzymes; E46 Unspecified protein-calorie malnutrition; E87.1 Hypo-osmolality and hyponatremia; K21.9 Gastro-esophageal reflux disease without esophagitis; N40.0 Benign prostatic hyperplasia without lower urinary tract symptoms; F10.26 Alcohol dependence with alcohol-induced persisting amnestic disorder; G45.9 Transient cerebral ischemic attack, unspecified; I25.2 Old myocardial infarction; I70.0 Atherosclerosis of aorta; K29.20 Alcoholic gastritis without bleeding; E03.9 Hypothyroidism, unspecified; Z68.29 Body mass index [BMI] 29.0-29.9, adult; Z98.890 Other specified postprocedural states; Z79.899 Other long term (current) drug therapy; Z86.73 Personal history of transient ischemic attack (TIA), and cerebral infarction without residual deficits
CPT/HCPCS: 36415; 71045; 71275; 80048; 80076; 82550; 83690; 83735; 83880; 84484; 85025; 85379; 85610; 85730; 93005; 96372; 96374; 96376; 99285; G0378; G0480; J1650; J3490; J7120; Q9967; 80061; 84443; G0379

== ENCOUNTER 2020-10-21 20:32 | Observation (INO) | payer MEDICARE, OTHER ==
[~2020-10-21] VITALS: Ht 172.7 cm; Wt 77.7 kg
[~2020-10-21 20:32] MED LIST changes: +CETI10TA16 PO; +DONE10TA7 PO; +FURO20TA3 PO; +LEVO50TA5 PO; +NITR0.4T22 SL; +PRIM50TA24 PO; +TERA5CAP3 PO
--- NOTE | 2020-10-21 20:55 | PHYS DOC ---
Past History Past Medical History: Alcoholism, Anemia, CAD, CHF, COPD, Dementia, High Cholesterol, Hypertension, Prostatitis, Other Additional Past Medical Histor: ETOH ABUSE Past Surgical History: No Surgical History Additional Past Surgical Histo: UNKNOWN Smoking: Cigarettes Alcohol Use: Rarely General Adult EDM: Chief Complaint: CHEST PAIN HPI: HPI: 75-year-old male presents via EMS with chest pain. He tells me that he has had a central chest pressure that is moderate in intensity for the last 3 days. He was seen at the [facility] today, but was feeling worse this evening and his family wanted him to be evaluated again. He decided to come here for second opinion. Patient also complains of increased lower extremity swelling beyond what is normal for him. He has shortness of breath. He has inhalers prescribed, but has not been taking them lately. He denies diaphoresis. Denies nausea, vomiting, diarrhea, fever, chills. Review of Systems: Review of Systems: Constitutional: Denies fever or chills Eyes: Denies change in visual acuity HENT: Denies nasal congestion or sore throat Respiratory: shortness of breath Cardiovascular: Chest pain and lower extremity edema GI: Denies abdominal pain, nausea, vomiting, bloody stools or diarrhea : Denies dysuria Musculoskeletal: Denies back pain or joint pain Integument: Denies rash Neurologic: Denies headache, focal weakness or sensory changes Endocrine: Denies polyuria or polydipsia Lymphatic: Denies swollen glands Psychiatric: Denies depression or anxiety Allergies: Allergies: Allergies Coded Allergies Type Severity Reaction Last Updated Verified No Known Drug Allergies 08/15/20 No Physical Exam: PE: Constitutional: Well developed, well nourished, no acute distress, non-toxic a ppearance. [] HENT: Normocephalic, atraumatic, bilateral external ears normal, oropharynx moist, no oral exudates, nose normal. [] Eyes: PERRLA, EOMI, conjunctiva normal, no discharge. [] Neck: Normal range of motion, no tenderness, supple, no stridor. [] Cardiovascular: Heart rate 72, regular rhythm, no murmur [] Lungs & Thorax: Bilateral breath sounds mild expiratory wheezing [] Abdomen: Bowel sounds normal, soft, no tenderness, no masses, no pulsatile masses. [] Skin: Warm, dry, no erythema, no rash. [] Back: No tenderness, no CVA tenderness. [] Extremities: No tenderness, no cyanosis, no clubbing, ROM intact, 3+ pitting edema bilateral lower extremities up to the thighs. [] Neurologic: Alert and oriented X 3, normal motor function, normal sensory function, no focal deficits noted. [] Psychologic: Affect normal, judgement normal, mood normal. [] Current Patient Data: Vital Signs: Vital Signs Date Time Temp Pulse Resp B/P (MAP) Pulse Ox O2 Delivery O2 Flow Rate FiO2 10/21/20 20:37 98.2 73 16 107/59 (75) 99 Room Air EKG: EKG: Sinus rhythm, rate 72, normal axis, no ST elevation or depression. [] Radiology/Procedures: Radiology/Procedures: [] Impressions: EXAM: CHEST ONE VIEW. HISTORY: Chest pain. COMPARISON: 08/15/2020. FINDINGS: A frontal view of the chest is obtained. There are mild multifocal infiltrates. There is no pneumothorax or pleural effusion. The heart is not enlarged. There are atherosclerotic calcifications of the aorta. IMPRESSION: 1. Mild multifocal infiltrates. Correlate for atypical pneumonia. Electronically signed by: Dawn Michel MD (10/21/2020 9:39 PM) [facility] DICTATED AND SIGNED BY: EDWIN MICHEL MD DATE: 10/21/202137 CC: CLEMENCIA RICH DO; PCP,NO ~MTH0 0 Heart Score: C/O Chest Pain: Yes HEART Score for Chest Pain: HEART Score for Chest Pain Response (Comments) Value History Moderately Suspicious 1 ECG Normal 0 Age > 65 2 Risk Factors 1 or 2 Risk Factors 1 Troponin < Normal Limit 0 Total 4 Risk Factors: Risk Factors: DM, Current or recent (<one month) smoker, HTN, HLP, family history of CAD, obesity. Risk Scores: Score 0 - 3: 2.5% MACE over next 6 weeks - Discharge Home Score 4 - 6: 20.3% MACE over next 6 weeks - Admit for Clinical Observation Score 7 - 10: 72.7% MACE over next 6 weeks - Early Invasive Strategies Course & Med Decision Making: Course & Med Decision Making Pertinent Labs and Imaging studies reviewed. (See chart for details) The patient CBC is unremarkable. His chest x-ray suggest multifocal pneumonia. I will treat him with Rocephin and azithromycin. I will also admit him to the hospital. I spoke to Dr. Perez and he has accepted the patient for admission. The patient is in agreement with this plan. [] Dragon Disclaimer: Rosa Disclaimer: This electronic medical record was generated, in whole or in part, using a voice recognition dictation system. Departure Departure: Impression: Primary Impression: Pneumonia Qualified Codes: J18.9 - Pneumonia, unspecified organism Disposition: ADMITTED INPATIENT Admitting Physician: Cony Perez Condition: STABLE Referrals: PCP,NO (PCP) CLEMENCIA RICH DO Oct 21, 2020 20:55
[2020-10-21 21:05] LABS: BASO % 0 % (0-3); EOS # 0.1 x10^3/uL (0.0-0.7); EOS % 1 % (0-3); HEMATOCRIT 32.1 % (39.0-53.0); HEMOGLOBIN 10.9 g/dL (13.0-17.5); LYMPH # 1.4 x10^3/uL (1.0-4.8); LYMPH % 18 % (24-48); MEAN CORPUSCULAR HEMOGLOBIN 34 pg (25-35); MEAN CORPUSCULAR HGB CONC 34 g/dL (31-37); MEAN CORPUSCULAR VOLUME 99 fL (79-100); MONO # 0.9 x10^3/uL (0.0-1.1); MONO % 12 % (0-9); NEUT # 5.3 x10^3uL (1.8-7.7); NEUT % 69 % (31-73); PLATELET COUNT 299 x10^3/uL (140-400); RED BLOOD COUNT 3.26 x10^6/uL (4.30-5.70); RED CELL DISTRIBUTION WIDTH 12.8 % (11.5-14.5); WHITE BLOOD COUNT 7.7 x10^3/uL (4.0-11.0)
[2020-10-21] MEDS ORDERED: ASPIRIN CHEWABLE 81 MG TABLET. PO ONE (21:30)
[2020-10-21] MEDS ORDERED: IPRATRPIUM/ALBUTEROL 0.5/2.5MG 3 ML NEBU. NEB ONE (21:30)
--- NOTE | 2020-10-21 21:41 | RAD ---
EXAM: CHEST ONE VIEW. HISTORY: Chest pain. COMPARISON: 08/15/2020. FINDINGS: A frontal view of the chest is obtained. There are mild multifocal infiltrates. There is no pneumothorax or pleural effusion. The heart is not enlarged. There are atherosclerotic calcifications of the aorta. IMPRESSION: 1. Mild multifocal infiltrates. Correlate for atypical pneumonia. Electronically signed by: Dawn Michel MD (10/21/2020 9:39 PM) [facility]
[2020-10-21 21:52] LABS: BILIRUBIN,URINE NEG (NEG); CLARITY,URINE CLEAR; COLOR,URINE COLORLESS; GLUCOSE,URINE NEG (NEG); NITRITE,URINE NEG (NEG); UROBILINOGEN,URINE 0.2 mg/dL (0.2 mg/dL)
[2020-10-21 21:53] LABS: BACTERIA,URINE 0 /HPF (0-FEW)
[2020-10-21 21:56] LABS: ALBUMIN 2.9 g/dL (3.4-5.0); CALCIUM 8.4 mg/dL (8.5-10.1); CREATININE 0.6 mg/dL (0.7-1.3); GFR 131.7; TOTAL BILIRUBIN 0.3 mg/dL (0.2-1.0); TOTAL PROTEIN 5.8 g/dL (6.4-8.2)
[2020-10-21 21:57] LABS: POTASSIUM 4.4 mmol/L (3.5-5.1)
[2020-10-21] MEDS ORDERED: IV NORMAL SALINE 50ML 50 ML ONE (22:07)
[2020-10-21] MEDS ORDERED: cefTRIAXone SODIUM 1 GM VIAL ONE (22:07)
--- NOTE | 2020-10-21 22:23 | EKG ---
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
[2020-10-21] MEDS ORDERED: AZITHROMYCIN 500 MG in IV NORMAL SALINE 250ML 250 ML IV ONE (22:30)
[2020-10-21 23:28] VITALS: BP 133/80
[2020-10-21] MEDS ORDERED: ONDANSETRON PF 4 MG/2 ML VIAL. IVP PRN (23:30)
[2020-10-21] MEDS ORDERED: ACETAMINOPHEN 325 MG TABLET PO PRN (23:30)
--- NOTE | 2020-10-22 00:45 | NUR ---
The patient, MADY COREA I, 75 y/o, M admitted by ALICJA HUSAIN MD, was given written information regarding hospital policies, unit procedures and contact persons. Valuables were checked and vital signs obtained. PT oriented to unit. Reviewed with PT his PMH, PSH, SH, FH and medications. PT A&O x4 but confused on family members (children and brothers). PT unsure of his medications and requested we contact his in the morning for these. PT's O2 at 96% on RA but requesting O2 for comfort. O2 applied via simple mask at 1L.
[2020-10-22 05:09] VITALS: BP 119/79
[2020-10-22] MEDS ORDERED: LORazepam 0.5 MG TABLET PO PRN (05:15)
[2020-10-22] MEDS ORDERED: ISOS30TA68 PO (07:34)
[2020-10-22] MEDS ORDERED: MAGN400T5 PO (07:34)
[2020-10-22] MEDS ORDERED: SPIR25TA5 PO (07:34)
[2020-10-22] MEDS ORDERED: TORS20TA2 PO (07:34)
[2020-10-22] MEDS ORDERED: CARV6.253 PO (07:34)
[2020-10-22] MEDS ORDERED: IPRATRPIUM/ALBUTEROL 0.5/2.5MG 3 ML NEBU. NEB SCH (08:00)
--- NOTE | 2020-10-22 10:11 | NUR ---
PT IS YELLING AGITATED. PT STATING I WANT TO LEAVE AND BECOMING PHYSICALLY AGGRESSIVE. PTS FAMILY NOTIFIED SON HERE TO PICK PT UP. PT SIGNED AMA PAPER WORK. PT W/C OFF OF UNIT ACCOMPANIED BY STAFF AND PT.
--- NOTE | 2020-10-22 10:31 | HP ---
ADMIT DATE: 10/22/2020 HISTORY OF PRESENT ILLNESS: The patient is a 75-year-old gentleman. I did review the ER note, [facility] with atypical chest pain and possible pneumonia. He was stable. He did not require any supplemental oxygen. He was started on empiric antibiotics. He got admitted Tuesday evening. We did not have chance to see him when I got here 10/22, the patient was agitated. He wanted to leave AMA, therefore he left the hospital against medical advice. He signed the papers before I had a chance to see him. Therefore, there is no history and physical and there is no discharge summary as the patient left AMA before I had a chance to see him. KALPESH DR: Stacey TID: [id number]
[2020-10-22] MEDS ORDERED: AZITHROMYCIN 500 MG in IV NORMAL SALINE 250ML 250 ML IV SCH (21:00)
== END 2020-10-22 10:15 | disposition home or self-care (01) ==
LOC: ER 20:32 → 1 SOUTH 23:25 → INTOOBSV 23:25
PROVIDERS: ADMIT Internal Medicine; ATTEND Internal Medicine
DX: R07.89 Other chest pain (principal); J18.9 Pneumonia, unspecified organism; I11.0 Hypertensive heart disease with heart failure; I50.9 Heart failure, unspecified; E78.5 Hyperlipidemia, unspecified; I25.10 Atherosclerotic heart disease of native coronary artery without angina pectoris; F03.90 Unspecified dementia, unspecified severity, without behavioral disturbance, psychotic disturbance, mood disturbance, and anxiety; E78.00 Pure hypercholesterolemia, unspecified; F17.210 Nicotine dependence, cigarettes, uncomplicated
CPT/HCPCS: 36415; 71045; 80053; 81001; 83880; 84484; 85025; 93005; 94640; 96365; 96366; 96367; 99285; G0378; J0456; J0696; J7050; G0379

== ENCOUNTER 2020-10-25 14:28 | Emergency (ER) | payer MEDICARE, OTHER ==
[~2020-10-25] VITALS: Ht 172.7 cm; Wt 77.7 kg
[~2020-10-25 14:28] MED LIST changes: +CARV6.253 PO; +ISOS30TA68 PO; +MAGN400T5 PO; +SPIR25TA5 PO; +TORS20TA2 PO
[2020-10-25 14:37] VITALS: BP 120/62
--- NOTE | 2020-10-25 14:58 | PHYS DOC ---
Past History Past Medical History: Alcoholism, Anemia, CAD, CHF, COPD, Dementia, High Cholesterol, Hypertension, Prostatitis, Other Additional Past Medical Histor: ETOH ABUSE Past Surgical History: No Surgical History Additional Past Surgical Histo: UNKNOWN Smoking: Cigarettes Alcohol Use: Rarely General Adult EDM: Chief Complaint: OVERDOSE HPI: HPI: 75-year-old male past medical history consistent for congestive heart failure, dementia, hypertension, hyperlipidemia with chronic lymphedema, presents to the ED brought by EMS after son called 911, concern for difficulties waking patient. EMS reports patient was unresponsive and was given 1 mg IV Narcan with return t o baseline mental status. Medical papers from [facility] visit (brought with patient) show patient has been taking tramadol, was prescribed 45 tablets for the next 30 days on 10/22. Patient is newly prescribed morphine immediate response (#20) and morphine SA (#10) on 10/22. Son at bedside states hospice gave "ativan per their protocol," due to agitation around lunchtime. Pt states "I was fine until I woke up in an ambulance. Call my and get her ass her, she'll know everything, I hate answering these questions." I did speak to pts' over the phone who reported pt had one immediate release morphine tablet in the morning and then hospice gave ativan hours later. Patient has been admitted to the [facility] within the past 60 days for congestive heart failure. Has been told he has triple-vessel heart disease and is not a surgical candidate. states they followed up with the screening nurse on Tuesday and they recommended hospice care. Hospice was established over the past 2 days. and son still insist pt be a full code despite education on poor prognosis and she has a pcp appointment in the next week to discuss medical care and code status. Review of Systems: Review of Systems: Constitutional: Denies fever or chills Eyes: Denies change in visual acuity HENT: Denies nasal congestion or sore throat Respiratory: Denies cough or shortness of breath Cardiovascular: Denies chest pain or edema GI: Denies abdominal pain, nausea, vomiting, bloody stools or diarrhea : Denies dysuria Musculoskeletal: Denies back pain or joint pain Integument: Denies rash Neurologic: Denies headache, focal weakness or sensory changes Endocrine: Denies polyuria or polydipsia Lymphatic: Denies swollen glands Psychiatric: Denies depression or anxiety Allergies: Allergies: Allergies Coded Allergies Type Severity Reaction Last Updated Verified No Known Drug Allergies 08/15/20 No Physical Exam: PE: Constitutional: Well developed, well nourished, no acute distress, non-toxic appearance. HENT: Normocephalic, atraumatic, Eyes: EOMI, conjunctiva normal, no discharge. Neck: Normal range of motion, supple, Cardiovascular: S1/2 present, regular rhythm Lungs & Thorax: Speaking in full sentences, bilateral equal chest rise, no tachypnea or increased work of breathing Abdomen: soft, no tenderness, Skin: Warm, dry, no erythema, no rash. [] Back: No tenderness, no CVA tenderness. [] Extremities: No tenderness, no cyanosis, lateral ankle pitting lower extremity edema Neurologic: Alert and oriented X 3, normal motor function, normal sensory function, no focal deficits noted. [] Psychologic: Affect normal, judgement normal, mood normal. [] EKG: EKG: Irregular rhythm/A. fib 70 bpm, no axis deviation, QTC 458, no obvious T wave inversions, ST elevations or ST depressions Radiology/Procedures: Radiology/Procedures: []IMAGING REPORT Signed PATIENT: MADY COREA IACCOUNT: [id number] : 1945 LOCATION: ER AGE: 75 SEX: M EXAM STATUS: REG ER ORD. PHYSICIAN: MIMI YOUNG DO REASON: unresponsive? PROCEDURE: CHEST AP ONLY EXAM: AP View of the chest DATE: 10/25/2020 3:18 PM INDICATION: Reason: unresponsive? / Spl. Instructions: / History: COMPARISON: No Prior FINDINGS: The heart is not enlarged. Aortic calcifications are seen. No focal parenchymal airspace opacity. No pleural effusion or pneumothorax. IMPRESSION: 1. No radiographic evidence for acute cardiopulmonary process. Electronically signed by: Will Lange MD (10/25/2020 3:24 PM) [facility] DICTATED AND SIGNED BY: WILL LANGE MD DATE: 10/25/20 1523 CC: PCP,NO; MIMI YOUNG DO ~MTH0 0 Heart Score: C/O Chest Pain: No Risk Factors: Risk Factors: DM, Current or recent (<one month) smoker, HTN, HLP, family history of CAD, obesity. Risk Scores: Score 0 - 3: 2.5% MACE over next 6 weeks - Discharge Home Score 4 - 6: 20.3% MACE over next 6 weeks - Admit for Clinical Observation Score 7 - 10: 72.7% MACE over next 6 weeks - Early Invasive Strategies Course & Med Decision Making: Course & Med Decision Making Pertinent Labs and Imaging studies reviewed. (See chart for details) Concern for apnea in the setting of recent medication changes and hospice care. Patient, and son agree that they don't want anything invasive, no labs while in ed. CXR w/no pulmonary edema. EKG unremarkable. Pt observed with no recurrence of apnea. Med list does not list any ativan or benzodiazepines. I educated son that patient should continue with his routine tramadol and use the additional morphine sparingly -to not mix this medication with any benzodiazepines or alcohol because of risk of apnea. Will prescribe Narcan. Will discharge home with strict ED return precautions were given for apnea, unresponsive state or cyanosis. Encouraged urgent outpatient follow-up with PMD in 1-2 days. Life-threatening processes were considered but are low suspicion at this time, given history, physical exam and ED workup. Pt was educated on all prescription medications and adverse effects. All patient's questions were an swered and pt was stable at time of discharge.] Life/limb-threatening differential includes but is not limited to, end organ da mage/sepsis, trauma/abuse/neglect, neurologic deficit, alcohol/drug ingestion, toxidrome, suicidal/homicidal ideations plans or attempts, psychosis or mental illness resulting in self neglect and inability to care for self. I spoken with the patient and her caregivers. I explained the patient's condition, diagnoses and treatment plan based on the information available to me at this time. I have answered the patient and her caregiver's questions and addressed any concerns. The patient and her caregivers have a good understanding of patient's diagnosis, condition and treatment plan as can be expected at this point. Vital signs have been stable. Patient's condition is stable and appropriate for discharge from the emergency department. Patient will pursue further outpatient evaluation with primary care physician or other designated or consulting physician as outlined in the discharge instructions. The patient and/or caregivers are agreeable to this plan of care and follow-up instructions have been explained in detail. The patient and/or caregivers have received these instructions in written form and have expressed an understanding of the discharge instructions. The patient and/or caregivers are aware that any significant change of condition or worsening of symptoms should prompt immediate return to this or the closest emergency department or call to 7. Rosa Disclaimer: Rosa Disclaimer: This electronic medical record was generated, in whole or in part, using a voice recognition dictation system. Departure Departure: Impression: Primary Impression: Apnea Additional Impressions: Opioid use Benzodiazepine causing adverse effect in therapeutic use Disposition: 01 HOME / SELF CARE / HOMELESS Condition: STABLE Referrals: PCP,NO (PCP) follow up with you pcp in 24 hours or FOLLOW UP WITH FAMILY MEDICINE: [facility] [address] [address] OR [facility] Patient Instructions: Naloxone injection, Overdose, Accidental Additional Instructions: EMERGENCY DEPARTMENT GENERAL DISCHARGE INSTRUCTIONS Thank you for coming to [facility] (ED) today and trusting us with you care. We trust that you had a positivie experience in our Emergency Department. If you wish to speak to the department management, you may call the director at [phone]. YOUR FOLLOW UP INSTRUCTIONS ARE FOLLOWS: 1. Do you have a private Doctor? If you do not have a private doctor, please ask for a resource list of physicians or clinics that may be able to assist you with follow up care. 2. The Emergency Physician has interpreted your x-rays. The X-Ray specialist will also review them. If there is a change in the findings, you will be notified in 48 hours when at all possible. 3. A lab test or culture has been done, your results will be reviewed and you will be notified if you need a change in treatment. ADDITIONAL INSTRUCTIONS AND INFORMATION: 1. Your care today has been supervised by a physician who is specially trained in emergency care. Many problems require more than one evaluation for a complete diagnosis and treatment. We recommend that you schedule your follow up appointment as recommended to ensure complete treatment of you illness or injury. If you are unable to obtain follow up care and continue to have a problem, or if your condition worsens, we recommend that you return to the ED. 2. We are not able to safely determine your condition over the phone nor are we able to give sound medical advice over the phone. For these safety reasons, if you call for medical advice we will ask you to come to the ED for further evaluation. 3. If you have any questions regarding these discharge instructions please call the ED at [phone]. SAFETY INFORMATION: In the interest of safety, wellness, and injury prevention; we encourage you to wear your sealbelt, if you smoke; quite smoking, and we encourage family to use a protective helmet for bicycling and other sporting events that present an increased risk for head injury. IF YOUR SYMPTOMS WORSEN OR NEW SYMPTOMS DEVELOP, OR YOU HAVE CONCERNS ABOUT YOUR CONDITION; OR IF YOUR CONDITION WORSENS WHILE YOU ARE WAITING FOR YOUR FOLLOW UP APPOINTMENT; EITHER CONTACT YOUR PRIMARY CARE DOCTOR, THE PHYSICIAN WHOSE NAME AND NUMBER YOU WERE GIVEN, OR RETURN TO THE ED IMMEDIATELY. Scripts Naloxone HCl (Narcan) 4 Mg Zillah 1 SPR NS ONCE for apnea/unresponsive for 1 Day, #2 INHALER 0 Refills 1 mg in nostril. May repeat dose 1 time after 4 minutes if apnea does not resolve/no improvement in unresponsive state Prov: MIMI YOUNG DO 10/25/20 MIMI YOUNG DO October 25, 2020 14:58
--- NOTE | 2020-10-25 15:26 | RAD ---
EXAM: AP View of the chest DATE: 10/25/2020 3:18 PM INDICATION: Reason: unresponsive? / Spl. Instructions: / History: COMPARISON: No Prior FINDINGS: The heart is not enlarged. Aortic calcifications are seen. No focal parenchymal airspace opacity. No pleural effusion or pneumothorax. IMPRESSION: 1. No radiographic evidence for acute cardiopulmonary process. Electronically signed by: Will Lange MD (10/25/2020 3:24 PM) [facility]
[2020-10-25] MEDS ORDERED: NALO4SPR NS (16:42)
--- NOTE | 2020-10-25 16:54 | EKG ---
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
== END 2020-10-25 16:56 | disposition home or self-care (01) ==
LOC: ER 14:28
DX: R06.81 Apnea, not elsewhere classified (principal); T42.4X5A Adverse effect of benzodiazepines, initial encounter; F11.90 Opioid use, unspecified, uncomplicated; R40.4 Transient alteration of awareness; F10.20 Alcohol dependence, uncomplicated; I25.10 Atherosclerotic heart disease of native coronary artery without angina pectoris; J44.9 Chronic obstructive pulmonary disease, unspecified; I11.0 Hypertensive heart disease with heart failure; I50.9 Heart failure, unspecified; F17.210 Nicotine dependence, cigarettes, uncomplicated; Z86.2 Personal history of diseases of the blood and blood-forming organs and certain disorders involving the immune mechanism; Y90.9 Presence of alcohol in blood, level not specified; Y92.89 Other specified places as the place of occurrence of the external cause
CPT/HCPCS: 71045; 93005; 99283

== ENCOUNTER 2020-11-01 15:15 | Emergency (ER) | payer MEDICARE, OTHER ==
[~2020-11-01] VITALS: Ht 172.7 cm; Wt 77.7 kg
[~2020-11-01 15:15] MED LIST changes: +NALO4SPR NS
[2020-11-01] MEDS ORDERED: LIDOCAINE 2% JELLY 10ML IN APPLICATOR. MM ONE (15:30)
--- NOTE | 2020-11-01 15:58 | PHYS DOC ---
Past History Past Medical History: Alcoholism, Anemia, CAD, CHF, COPD, Dementia, High Cholesterol, Hypertension, Prostatitis, Other Additional Past Medical Histor: ETOH ABUSE Past Surgical History: No Surgical History Additional Past Surgical Histo: UNKNOWN Smoking: Cigarettes Alcohol Use: Heavy Additional Alcohol Information: DEINKS "2 BEERS A DAY" PER SON General Adult EDM: Chief Complaint: URINARY RETENTION HPI: HPI: Patient is a 75-year-old male coming in via EMS for low abdominal and penile pain, along with worsening lower extremity "weeping" edema. Has had urinary tension for 2 to 3 days despite taking his furosemide. Patient lives with his and son. Son states she has a history of CHF but no history of urinary retention. Patient is a poor historian and son does not know much of his father's medical history. Review of Systems: Review of Systems: All other systems within normal limits except for as noted in the HPI Current Medications: Current Meds: Current Medications Medications (Trade) Dose Ordered Sig/Shun Start Time Stop Time Status Last Admin Dose Admin Lidocaine HCl (Uro-Jet) 1 roselia 1X ONCE 11/01/20 15:30 11/01/20 15:31 DC Allergies: Allergies: Allergies Coded Allergies Type Severity Reaction Last Updated Verified No Known Drug Allergies 08/15/20 No Physical Exam: PE: Constitutional: Well developed, well nourished, no acute distress, non-toxic appearance. [] HENT: Normocephalic, atraumatic, bilateral external ears normal, nose normal. [] Eyes: PERRLA, conjunctiva normal, no discharge. [] Neck: No rigidity, supple, no stridor. [] Cardiovascular: Regular rate and rhythm, brisk cap refill [] Lungs & Thorax: Non labored symmetric respirations, no tachypnea or respiratory distress [] Abdomen: Soft, mild distention lower abdomen, palpable bladder, lower abdominal tenderness Skin: Warm, dry, no erythema, no rash. [] Back: Unremarkable Extremities: No deformities, range of motion grossly intact, 2+ symmetric bilateral lower extremity edema [] Neurologic: Alert and oriented X 3, no focal deficits noted. [] Psychologic: Affect normal, judgement normal, mood normal. [] Current Patient Data: Vital Signs: Vital Signs Date Time Temp Pulse Resp B/P (MAP) Pulse Ox O2 Delivery O2 Flow Rate FiO2 11/01/20 15:15 97.7 66 18 136/64 (88) 95 EKG: EKG: [] Radiology/Procedures: Radiology/Procedures: EXAM: Abdomen acute complete. HISTORY: Pain. COMPARISON: 10/25/2020 FINDINGS: A frontal view of the chest and frontal upright and supine views of the abdomen are obtained. There is no infiltrate, pleural effusion or pneumothorax. The heart is normal in size. There is suspected lingular atelectasis or scarring. There is gas and stool within the colon. There is no evidence of bowel obstruction. There is no free air. IMPRESSION: 1. No acute pulmonary finding. 2. Nonobstructive bowel gas pattern. [] Heart Score: C/O Chest Pain: No Risk Factors: Risk Factors: DM, Current or recent (<one month) smoker, HTN, HLP, family history of CAD, obesity. Risk Scores: Score 0 - 3: 2.5% MACE over next 6 weeks - Discharge Home Score 4 - 6: 20.3% MACE over next 6 weeks - Admit for Clinical Observation Score 7 - 10: 72.7% MACE over next 6 weeks - Early Invasive Strategies Course & Med Decision Making: Course & Med Decision Making Pertinent Labs and Imaging studies reviewed. (See chart for details) Bladder scan shows greater than 9 9 9 mL in bladder, Barreto placed Labs and presentation are consistent with post renal obstruction. Barreto placed with about 1200 out, in the next hour another 250 mL released into the Barreto. Discussed with patient that his labs are consistent with an overall dehydration and injury to his kidneys, also that I am worried about a post obstructive diuresis especially in the setting of using furosemide. Tred to discuss with the patient and son that his labs and urine output are consistent with an indication to be admitted to the hospital.. Patient is a hospice patient currently and is refusing admission. Recently was admitted for pneumonia and left AMA. Patient will be discharged with a Barreto to follow-up with family medicine doctor for reevaluation. Patient has baseline hyponatremia that is slightly worsened. Patient is a daily drinker. And has a baseline low ion gap. Patient signed AMA paperwork, able to voice that he understands that leaving without further treatment may mean permanent damage to his kidneys and or . Patient's son (who would like for him to be admitted) in room and we discussed that he is always allowed to return for admission, treatment, or worsening symptoms. [] Dragon Disclaimer: Dragon Disclaimer: This electronic medical record was generated, in whole or in part, using a voice recognition dictation system. Departure Departure: Impression: Primary Impression: Urinary (tract) obstruction Disposition: LEFT AGAINST MEDICAL ADVICE Condition: GUARDED Referrals: PCP,NO (PCP) Patient Instructions: Discharge Against Medical Advice, Barreto Catheter Care, Adult Additional Instructions: Due to the urinary tract obstruction you have a Barreto placed please follow-up with your primary care provider or hospice provider in a few days for reevaluation. Because of the duration of time without urinating, there has been damage done to your kidneys. Was recommended that you stay in the hospital for monitoring to prevent complications such as dehydration, permanent kidney injury, and . You are welcome to return at anytime for worsening symptoms, new symptoms, and treatment. SONA ALVAREZ MD November 01, 2020 15:58
[2020-11-01 16:18] LABS: BILIRUBIN,URINE NEG (NEG); CLARITY,URINE CLEAR; COLOR,URINE YELLOW; GLUCOSE,URINE NEG (NEG); NITRITE,URINE NEG (NEG); UROBILINOGEN,URINE 0.2 mg/dL (0.2 mg/dL)
[2020-11-01 16:20] LABS: BACTERIA,URINE FEW /HPF (0-FEW); RBC,URINE OCC /HPF (0-2); SQUAMOUS EPITHELIAL CELL,UR OCC /LPF; WBC,URINE OCC /HPF (0-4)
--- NOTE | 2020-11-01 16:36 | RAD ---
EXAM: Abdomen acute complete. HISTORY: Pain. COMPARISON: 10/25/2020 FINDINGS: A frontal view of the chest and frontal upright and supine views of the abdomen are obtaine d. There is no infiltrate, pleural effusion or pneumothorax. The heart is normal in size. There is willis spected lingular atelectasis or scarring. There is gas and stool within the colon. There is no eviden ce of bowel obstruction. There is no free air. IMPRESSION: 1. No acute pulmonary finding. 2. Nonobstructive bowel gas pattern. Electronically signed by: Flori Medina MD (11/01/2020 4:33 PM) [facility]
[2020-11-01 16:55] LABS: BASO % 0 % (0-3); EOS % 0 % (0-3); HEMATOCRIT 35.9 % (39.0-53.0); HEMOGLOBIN 12.5 g/dL (13.0-17.5); LYMPH # 0.6 x10^3/uL (1.0-4.8); LYMPH % 6 % (24-48); MEAN CORPUSCULAR HEMOGLOBIN 33 pg (25-35); MEAN CORPUSCULAR HGB CONC 35 g/dL (31-37); MEAN CORPUSCULAR VOLUME 96 fL (79-100); MONO # 0.7 x10^3/uL (0.0-1.1); MONO % 7 % (0-9); NEUT # 8.5 x10^3uL (1.8-7.7); NEUT % 86 % (31-73); PLATELET COUNT 284 x10^3/uL (140-400); RED BLOOD COUNT 3.76 x10^6/uL (4.30-5.70); RED CELL DISTRIBUTION WIDTH 12.7 % (11.5-14.5); WHITE BLOOD COUNT 9.8 x10^3/uL (4.0-11.0)
[2020-11-01 17:12] LABS: ALBUMIN 3.2 g/dL (3.4-5.0); CALCIUM 8.9 mg/dL (8.5-10.1); POTASSIUM 4.1 mmol/L (3.5-5.1); TOTAL BILIRUBIN 0.4 mg/dL (0.2-1.0); TOTAL PROTEIN 6.4 g/dL (6.4-8.2)
[2020-11-01 17:45] VITALS: BP 137/59
[2020-11-02] MEDS ORDERED: HYOS0.3716 PO (15:42)
== END 2020-11-01 17:48 | disposition left against medical advice (07) ==
LOC: ER 15:15
DX: N13.8 Other obstructive and reflux uropathy (principal); I25.10 Atherosclerotic heart disease of native coronary artery without angina pectoris; I11.0 Hypertensive heart disease with heart failure; I50.9 Heart failure, unspecified; J44.9 Chronic obstructive pulmonary disease, unspecified; F03.90 Unspecified dementia, unspecified severity, without behavioral disturbance, psychotic disturbance, mood disturbance, and anxiety; E78.00 Pure hypercholesterolemia, unspecified; F10.20 Alcohol dependence, uncomplicated; F17.210 Nicotine dependence, cigarettes, uncomplicated; Z86.2 Personal history of diseases of the blood and blood-forming organs and certain disorders involving the immune mechanism; Y90.9 Presence of alcohol in blood, level not specified
CPT/HCPCS: 36415; 51702; 74022; 80053; 81001; 83880; 84484; 85025; 87086; 99285

== ENCOUNTER 2020-11-01 23:48 | Emergency (ER) | payer MEDICARE, OTHER ==
[2020-11-01 17:45] VITALS: BP 137/59
[2020-11-02] MEDS ORDERED: HYOS0.3716 PO (15:42)
== END 2020-11-01 23:55 | disposition left against medical advice (07) ==
LOC: ER 23:48
DX: R30.0 Dysuria (principal); Z53.21 Procedure and treatment not carried out due to patient leaving prior to being seen by health care provider
CPT/HCPCS: 99283

== ENCOUNTER 2020-11-02 13:01 | Emergency (ER) | payer MEDICARE, OTHER ==
[~2020-11-02] VITALS: Ht 172.7 cm; Wt 79.1 kg
--- NOTE | 2020-11-02 13:37 | PHYS DOC ---
Past History Past Medical History: Alcoholism, Anemia, CAD, CHF, COPD, Dementia, High Cholesterol, Hypertension, Prostatitis, Other Additional Past Medical Histor: ETOH ABUSE Past Surgical History: No Surgical History Additional Past Surgical Histo: UNKNOWN Smoking: Cigarettes Alcohol Use: Heavy General Adult EDM: Chief Complaint: URINARY RETENTION HPI: HPI: Patient is a 75-year-old male comes emergency department for low abdominal pain patient was seen yesterday and diagnosed with a post renal urinary tract obstruction that was relieved with a Barreto. Yesterday he had about 1.2 L out initially followed by 250 cc next hour. Patient also had elevated BUN to creati nine ratio. Patient yesterday was advised he should be admitted for possible postobstructive diuresis and the risk of excessive fluid loss and dehydration. As well as kidney injury. Patient signed out AMA at that time. Had returned last night but it signed in and then left before he could be seen. Patient states he is willing to stay this time. Since leaving yesterday he has had about 2.5 L out from the Barreto. Has had a mild improvement of his lower extremity edema. Has been taking his torsemide as prescribed. Review of Systems: Review of Systems: All other systems within normal limits except for as noted in the HPI Allergies: Allergies: Allergies Coded Allergies Type Severity Reaction Last Updated Verified No Known Drug Allergies 08/15/20 No Physical Exam: PE: Constitutional: Well developed, well nourished, no acute distress, non-toxic appearance. [] HENT: Normocephalic, atraumatic, bilateral external ears normal, nose normal. [] Eyes: PERRLA, conjunctiva normal, no discharge. [] Neck: No rigidity, supple, no stridor. [] Cardiovascular: Regular rate and rhythm, brisk cap refill [] Lungs & Thorax: Non labored symmetric respirations, no tachypnea or respiratory distress [] Abdomen: Soft, nondistended, low abdominal tenderness no palpable masses, urinary Barreto in place. Skin: Warm, dry, no erythema, no rash. [] Back: Unremarkable Extremities: No deformities, range of motion grossly intact, no lower extremity edema [] Neurologic: Alert and oriented X 3, no focal deficits noted. [] Psychologic: Affect normal, judgement normal, mood normal. [] EKG: EKG: Sinus rhythm, heart center beats minute, normal axis, no ST elevation depression, no ectopy. [] Radiology/Procedures: Radiology/Procedures: [] Heart Score: C/O Chest Pain: No Risk Factors: Risk Factors: DM, Current or recent (<one month) smoker, HTN, HLP, family history of CAD, obesity. Risk Scores: Score 0 - 3: 2.5% MACE over next 6 weeks - Discharge Home Score 4 - 6: 20.3% MACE over next 6 weeks - Admit for Clinical Observation Score 7 - 10: 72.7% MACE over next 6 weeks - Early Invasive Strategies Course & Med Decision Making: Course & Med Decision Making Pertinent Labs and Imaging studies reviewed. (See chart for details) Patient still dehydrated with large amount of urine voided since yesterday. Patient initially stated he was okay with staying in the hospital but prior to being admitted patient stated he was ready to leave and signed out AMA. Again discussed the risks and benefits of refusing treatment. Advised patient to follow-up with primary care provider. We will still provide patient with a prescription for his low abdominal pain which is likely due to bladder spasms after Barreto placement for significant urine retention. [] Dragon Disclaimer: Dragon Disclaimer: This electronic medical record was generated, in whole or in part, using a voice recognition dictation system. Departure Departure: Impression: Primary Impression: Dehydration Additional Impression: Bladder spasms Disposition: LEFT AGAINST MEDICAL ADVICE Condition: GUARDED Referrals: PCP,UNKNOWN (PCP) Additional Instructions: Follow-up with your primary care provider or urologist in the next few days regarding your Barreto catheter. Scripts Hyoscyamine Sulfate (Hyoscyamine Sulfate Sr) 0.375 Mg Tab.er.12h 0.375 MG PO PRN Q6-8HRS PRN for BLADDER SPASM for 5 Days, #15 TAB.SR Prov: SONA ALVAREZ MD 11/02/20 SONA ALVAREZ MD November 02, 2020 13:37
[2020-11-02 14:22] LABS: BASO % 0 % (0-3); EOS # 0.1 x10^3/uL (0.0-0.7); EOS % 1 % (0-3); HEMATOCRIT 35.4 % (39.0-53.0); HEMOGLOBIN 12.3 g/dL (13.0-17.5); LYMPH # 1.3 x10^3/uL (1.0-4.8); LYMPH % 16 % (24-48); MEAN CORPUSCULAR HEMOGLOBIN 33 pg (25-35); MEAN CORPUSCULAR HGB CONC 35 g/dL (31-37); MEAN CORPUSCULAR VOLUME 97 fL (79-100); MONO % 12 % (0-9); NEUT % 71 % (31-73); PLATELET COUNT 250 x10^3/uL (140-400); RED BLOOD COUNT 3.66 x10^6/uL (4.30-5.70); RED CELL DISTRIBUTION WIDTH 12.8 % (11.5-14.5); WHITE BLOOD COUNT 8.4 x10^3/uL (4.0-11.0)
[2020-11-02 14:38] LABS: CALCIUM 8.4 mg/dL (8.5-10.1); POTASSIUM 3.3 mmol/L (3.5-5.1)
[2020-11-02 14:52] LABS: ALBUMIN 2.9 g/dL (3.4-5.0); MAGNESIUM 1.7 mg/dL (1.8-2.4); TOTAL BILIRUBIN 0.3 mg/dL (0.2-1.0); TOTAL PROTEIN 5.9 g/dL (6.4-8.2)
[2020-11-02 15:03] LABS: BILIRUBIN,URINE NEG (NEG); CLARITY,URINE HAZY; COLOR,URINE YELLOW; GLUCOSE,URINE NEG (NEG); NITRITE,URINE NEG (NEG); UROBILINOGEN,URINE 0.2 mg/dL (0.2 mg/dL)
[2020-11-02 15:04] LABS: BACTERIA,URINE FEW /HPF (0-FEW); RBC,URINE 20-40 /HPF (0-2); SQUAMOUS EPITHELIAL CELL,UR OCC /LPF
[2020-11-02] MEDS: HYOSCYAMINE 0.125 MG TAB.RAPDIS PO ONE (15:27)
[2020-11-02 15:30] VITALS: BP 120/68
[2020-11-02] MEDS ORDERED: HYOS0.3716 PO (15:42)
--- NOTE | 2020-11-03 00:08 | EKG ---
[address] [address] Test Date: 2020-11-02 Test Time: 14:00:34 Pat Name: MADY COREA Department: Room: Gender: M Highway Design Engineer: VON : 1945 Requested By: SONA ALVAREZ Order Number: [id number] Reading MD: Measurements Intervals [place]s Rate: 75 P: 90 MS: 142 QRS: 67 QRSD: 106 T: 55 QT: 438 QTc: 492 Interpretive Statements SINUS RHYTHM PROLONGED QT NO SPECIFIC ECG ABNORMALITIES RI6.02 No previous ECG available for comparison
[2020-11-03] MEDS ORDERED: DOCU100C28 PO (14:30)
[2020-11-03] MEDS ORDERED: LIDO113G3 TP (14:30)
== END 2020-11-02 15:45 | disposition left against medical advice (07) ==
LOC: ER 13:01
DX: E86.0 Dehydration (principal); N32.89 Other specified disorders of bladder; I25.10 Atherosclerotic heart disease of native coronary artery without angina pectoris; I11.0 Hypertensive heart disease with heart failure; I50.9 Heart failure, unspecified; F03.90 Unspecified dementia, unspecified severity, without behavioral disturbance, psychotic disturbance, mood disturbance, and anxiety; J44.9 Chronic obstructive pulmonary disease, unspecified; E78.00 Pure hypercholesterolemia, unspecified; F10.20 Alcohol dependence, uncomplicated; F17.210 Nicotine dependence, cigarettes, uncomplicated; Z86.2 Personal history of diseases of the blood and blood-forming organs and certain disorders involving the immune mechanism; Y90.0 Blood alcohol level of less than 20 mg/100 ml
CPT/HCPCS: 36415; 80053; 81001; 82550; 83605; 83735; 83874; 83880; 84484; 85025; 87086; 93005; 99284; G0480

== ENCOUNTER 2020-11-03 13:10 | Emergency (ER) | payer MEDICARE, OTHER ==
[~2020-11-03] VITALS: Ht 172.7 cm; Wt 79.1 kg
[~2020-11-03 13:10] MED LIST changes: +HYOS0.3716 PO
[2020-11-03] MEDS ORDERED: LIDOCAINE 2% JELLY 10ML IN APPLICATOR. ONE (14:08)
[2020-11-03] MEDS ORDERED: DOCU100C28 PO (14:30)
[2020-11-03] MEDS ORDERED: LIDO113G3 TP (14:30)
[2020-11-03] MEDS ORDERED: LIDOCAINE 2% JELLY 10ML IN APPLICATOR. MM ONE (14:30)
--- NOTE | 2020-11-03 14:30 | PHYS DOC ---
Past History Past Medical History: Alcoholism, Anemia, CAD, CHF, COPD, Dementia, High Cholesterol, Hypertension, Prostatitis, Other Additional Past Medical Histor: ETOH ABUSE Past Surgical History: No Surgical History Additional Past Surgical Histo: UNKNOWN Smoking: Cigarettes Alcohol Use: Heavy General Adult EDM: Chief Complaint: URINE CATHETER PROBLEM HPI: HPI: Patient is a 44-year-old male coming in for his fourth ED visit in the past 3 days. 2 days ago he was seen for urinary retention had a Barreto placed. It was recommended that he stay in the hospital for monitoring of his kidneys for post retention diuresis. Patient left AMA. Came back later that night but then left not being seen. Yesterday was seen again for low abdominal pain and initially said he was willing to be admitted. Patient then left AMA prior to being admitted. Today patient is brought in again by his son for his Barreto. Patient says the Barreto was irritating him I was messing with it and pulling on it and now has some bleeding around the Barreto. Otherwise is draining well. Review of Systems: Review of Systems: All other systems within normal limits except for as noted in the HPI Current Medications: Current Meds: Current Medications Medications (Trade) Dose Ordered Sig/Shun Start Time Stop Time Status Last Admin Dose Admin Lidocaine HCl (Uro-Jet) 10 roselia STK-MED ONCE 11/03/20 14:08 11/03/20 14:08 [place] Allergies: Allergies: Allergies Coded Allergies Type Severity Reaction Last Updated Verified No Known Drug Allergies 11/03/20 No Physical Exam: PE: Constitutional: Well developed, well nourished, no acute distress, non-toxic appearance. [] HENT: Normocephalic, atraumatic, bilateral external ears normal, nose normal. [] Eyes: PERRLA, conjunctiva normal, no discharge. [] Neck: No rigidity, supple, no stridor. [] Cardiovascular: Regular rate and rhythm, brisk cap refill [] Lungs & Thorax: Non labored symmetric respirations, no tachypnea or respiratory distress [] Abdomen: Soft, nondistended, Barreto in place with blood around meatus. Skin: Warm, dry, no erythema, no rash. [] Back: Unremarkable Extremities: No deformities, range of motion grossly intact, no lower extremity edema [] Neurologic: Alert and oriented X 3, no focal deficits noted. [] Psychologic: Affect normal, judgement normal, mood normal. [] Current Patient Data: Vital Signs: Vital Signs Date Time Temp Pulse Resp B/P (MAP) Pulse Ox O2 Delivery O2 Flow Rate FiO2 11/03/20 13:20 97.4 73 18 151/53 (85) 95 Room Air EKG: EKG: [] Radiology/Procedures: Radiology/Procedures: [] Heart Score: C/O Chest Pain: No Risk Factors: Risk Factors: DM, Current or recent (<one month) smoker, HTN, HLP, family history of CAD, obesity. Risk Scores: Score 0 - 3: 2.5% MACE over next 6 weeks - Discharge Home Score 4 - 6: 20.3% MACE over next 6 weeks - Admit for Clinical Observation Score 7 - 10: 72.7% MACE over next 6 weeks - Early Invasive Strategies Course & Med Decision Making: Course & Med Decision Making Barreto catheter changed out. Dragon Disclaimer: Dragon Disclaimer: This electronic medical record was generated, in whole or in part, using a voice recognition dictation system. Departure Departure: Impression: Primary Impression: Barreto catheter problem Disposition: HOME / SELF CARE / HOMELESS Condition: STABLE Referrals: PCP,UNKNOWN (PCP) Patient Instructions: Barreto Catheter Care, Adult Scripts Docusate Sodium (DOCUSATE SODIUM) 100 Mg Capsule 1 CAP PO BID for constipation for 15 Days, #30 CAP 0 Refills Prov: SONA ALVAREZ MD 11/03/20 Lidocaine (TOPICAINE 5) 113 Gm Gel..gram. 1 ROSELIA TP PRN Q4-6HRS PRN for PAIN for 5 Days, EACH Prov: SONA ALVAREZ MD 11/03/20 SONA ALVAREZ MD November 03, 2020 14:30
[2020-11-03 14:33] VITALS: BP 111/47
== END 2020-11-03 14:56 | disposition home or self-care (01) ==
LOC: ER 13:10
DX: R33.9 Retention of urine, unspecified (principal); J44.9 Chronic obstructive pulmonary disease, unspecified; E78.5 Hyperlipidemia, unspecified; I11.0 Hypertensive heart disease with heart failure; I50.9 Heart failure, unspecified; F17.210 Nicotine dependence, cigarettes, uncomplicated
CPT/HCPCS: 51702; 99284

== ENCOUNTER 2020-11-05 23:18 | Emergency (ER) | payer MEDICARE, OTHER ==
[~2020-11-05] VITALS: Ht 172.7 cm; Wt 79.1 kg
[~2020-11-05 23:18] MED LIST changes: +LIDO113G3 TP
[2020-11-06] MEDS ORDERED: IOHEXOL 300 MG/ML 75 ML VIAL. IV ONE
[2020-11-06] MEDS ORDERED: MORPHINE SULFATE 4 MG/ML DISP.SYRIN. IV ONE
[2020-11-06] MEDS ORDERED: ONDANSETRON PF 4 MG/2 ML VIAL. IVP ONE
[2020-11-06 00:25] LABS: BASO % 0 % (0-3); EOS # 0.2 x10^3/uL (0.0-0.7); EOS % 3 % (0-3); HEMATOCRIT 34.8 % (39.0-53.0); HEMOGLOBIN 12.1 g/dL (13.0-17.5); LYMPH # 1.5 x10^3/uL (1.0-4.8); LYMPH % 22 % (24-48); MEAN CORPUSCULAR HEMOGLOBIN 33 pg (25-35); MEAN CORPUSCULAR HGB CONC 35 g/dL (31-37); MEAN CORPUSCULAR VOLUME 96 fL (79-100); MONO # 0.9 x10^3/uL (0.0-1.1); MONO % 14 % (0-9); NEUT # 4.2 x10^3uL (1.8-7.7); NEUT % 61 % (31-73); PLATELET COUNT 243 x10^3/uL (140-400); RED BLOOD COUNT 3.64 x10^6/uL (4.30-5.70); RED CELL DISTRIBUTION WIDTH 12.9 % (11.5-14.5); WHITE BLOOD COUNT 6.8 x10^3/uL (4.0-11.0)
[2020-11-06 00:34] LABS: BACTERIA,URINE 0 /HPF (0-FEW); BILIRUBIN,URINE NEG (NEG); CLARITY,URINE CLEAR; COLOR,URINE YELLOW; GLUCOSE,URINE NEG (NEG); NITRITE,URINE NEG (NEG); RBC,URINE OCC /HPF (0-2); SQUAMOUS EPITHELIAL CELL,UR OCC /LPF; UROBILINOGEN,URINE 0.2 mg/dL (0.2 mg/dL); WBC,URINE OCC /HPF (0-4)
[2020-11-06 00:48] LABS: ALBUMIN 2.9 g/dL (3.4-5.0); CALCIUM 8.4 mg/dL (8.5-10.1); CREATININE 1.1 mg/dL (0.7-1.3); GFR 65.4; TOTAL BILIRUBIN 0.3 mg/dL (0.2-1.0); TOTAL PROTEIN 5.8 g/dL (6.4-8.2)
[2020-11-06 00:53] LABS: POTASSIUM 2.9 mmol/L (3.5-5.1)
[2020-11-06] MEDS: POTASSIUM CL 40MEQ IN 0.9%NACL 1,000 ML IV ONE ×2 (01:05→01:15)
--- NOTE | 2020-11-06 01:25 | RAD ---
EXAM: CT ABDOMEN/PELVIS WITH CONTRAST. HISTORY: Abdominal pain. TECHNIQUE: Computed tomography of the abdomen and pelvis was performed after the intravenous administ ration of iodinated contrast. One or more of the following individualized dose reduction techniques w ere utilized for this examination: 1. Automated exposure control. 2. Adjustment of the mA and/or kV according to patient size. 3. Use of iterative reconstruction technique. COMPARISON: 08/01/2020. FINDINGS: Lung windows through the visualized portions of the bases reveal mild atelectasis. There ar e atherosclerotic calcifications of the coronary arteries. Bone windows reveal no suspicious lesions. The liver, gallbladder, of pancreas, adrenal glands, spleen and right kidney are unremarkable. Subcen timeter cysts in the left kidney are likely benign. An infrarenal abdominal aortic aneurysm measures 3.5 x 3.4 cm. There is multifocal at least mild sten osis within the common iliac arteries which are not aneurysmal. The bladder is decompressed by a Barreto catheter. There is mild wall thickening. There is edema within the presacral space. The rectum is distended to 7 cm with slight wall thickening. Stool throughout t he right colon is consistent with mild constipation. The appendix is not inflamed. There is no small bowel obstruction. IMPRESSION: 1. Constipation/mild fecal impaction. Perirectal edema suggests proctitis. No drainable collection. 2. Nonfocal bladder wall thickening suggests chronic outlet obstruction or inflammation. Correlate urinalysis. 3. 3.5 cm infrarenal abdominal aortic aneurysm. Electronically signed by: Dawn Michel MD (11/06/2020 1:23 AM) [facility]
[2020-11-06 01:30] VITALS: BP 95/47
[2020-11-06] MEDS ORDERED: POTA20TA4 PO (01:32)
[2020-11-06] MEDS ORDERED: MAGN296S68 PO (01:32)
--- NOTE | 2020-11-06 01:33 | PHYS DOC ---
Past History Past Medical History: Alcoholism, Anemia, CAD, CHF, COPD, Dementia, High Cholesterol, Hypertension, Prostatitis, Other Additional Past Medical Histor: ETOH ABUSE Past Surgical History: No Surgical History Additional Past Surgical Histo: UNKNOWN Smoking: Cigarettes Alcohol Use: Heavy General Adult EDM: Chief Complaint: ABDOMINAL PAIN HPI: HPI: Patient is a 75 year old male presents with the chief complaint of abdominal pain. Patient is very agitated during exam. States his pain is in his lower abdomen. Denies associated nausea or vomiting. Patient unable to tell me when the onset of his pain was-- states he is unsure. Patient also complains of bilateral lower leg swelling. Patient also tells me he is unsure when his leg swelling started. Patient is accompanied by his son. Patient has an indwelling gary cath. In review of past medical records patient was recently seen for urinary retension. Review of Systems: Review of Systems: Constitutional: Denies fever or chills Eyes: Denies change in visual acuity HENT: Denies nasal congestion or sore throat Respiratory: Denies cough or shortness of breath Cardiovascular: Denies chest pain positive leg edema bilateral. GI: positive abdominal pain, denies nausea, vomiting, bloody stools or diarrhea : Denies dysuria Musculoskeletal: Denies back pain or joint pain Integument: Denies rash Neurologic: Denies headache, focal weakness or sensory changes Endocrine: Denies polyuria or polydipsia Lymphatic: Denies swollen glands Psychiatric: Denies depression or anxiety Current Medications: Current Meds: Current Medications Medications (Trade) Dose Ordered Sig/Shun Start Time Stop Time Status Last Admin Dose Admin Iohexol (Omnipaque 300 Mg/ml) 75 ml 1X ONCE 11/06/20 00:00 11/06/20 00:01 DC 11/06/20 00:17 75 ML Morphine Sulfate (Morphine 4mg Syringe) 4 mg 1X ONCE 11/06/20 00:00 11/06/20 00:01 DC 11/06/20 00:13 4 MG Ondansetron HCl (Zofran) 4 mg 1X ONCE 11/06/20 00:00 11/06/20 00:01 DC 11/06/20 00:14 4 MG Potassium Chloride/Sodium Chloride 1,000 ml @ 75 mls/hr 1X ONCE 11/06/20 01:30 11/06/20 14:49 11/06/20 01:05 75 MLS/HR Allergies: Allergies: Allergies Coded Allergies Type Severity Reaction Last Updated Verified No Known Drug Allergies 11/03/20 No Physical Exam: PE: Constitutional: Well developed, well nourished, no acute distress, non-toxic appearance. [] HENT: Normocephalic, atraumatic, bilateral external ears normal, oropharynx moist, no oral exudates, nose normal. [] Eyes: PERRLA, EOMI, conjunctiva normal, no discharge. [] Neck: Normal range of motion, no tenderness, supple, no stridor. [] Cardiovascular:Heart rate regular rhythm, no murmur [] Lungs & Thorax: Bilateral breath sounds clear to auscultation [] Abdomen: soft, diffuse tenderness, no masses, no pulsatile masses. [] Skin: Warm, dry, no erythema, no rash. [] Back: No tenderness, no CVA tenderness. [] Extremities: No tenderness, no cyanosis, ROM intact, bilateral pedal edema. [] Neurologic: Alert and oriented X 3, normal motor function, normal sensory function, no focal deficits noted. [] Psychologic:agitated. [] Current Patient Data: Labs: Laboratory Tests Test 11/06/20 00:05 11/06/20 00:10 White Blood Count 6.8 x10^3/uL (4.0-11.0) Red Blood Count 3.64 x10^6/uL (4.30-5.70) L Hemoglobin 12.1 g/dL (13.0-17.5) L Hematocrit 34.8 % (39.0-53.0) L Mean Corpuscular Volume 96 fL (79-100) Mean Corpuscular Hemoglobin 33 pg (25-35) Mean Corpuscular Hemoglobin Concent 35 g/dL (31-37) Red Cell Distribution Width 12.9 % (11.5-14.5) Platelet Count 243 x10^3/uL (140-400) Neutrophils (%) (Auto) 61 % (31-73) Lymphocytes (%) (Auto) 22 % (24-48) L Monocytes (%) (Auto) 14 % (0-9) H Eosinophils (%) (Auto) 3 % (0-3) Basophils (%) (Auto) 0 % (0-3) Neutrophils # (Auto) 4.2 x10^3uL (1.8-7.7) Lymphocytes # (Auto) 1.5 x10^3/uL (1.0-4.8) Monocytes # (Auto) 0.9 x10^3/uL (0.0-1.1) Eosinophils # (Auto) 0.2 x10^3/uL (0.0-0.7) Basophils # (Auto) 0.0 x10^3/uL (0.0-0.2) Sodium Level 125 mmol/L (136-145) L Potassium Level 2.9 mmol/L (3.5-5.1) *L Chloride Level 86 mmol/L (98-107) L Carbon Dioxide Level 32 mmol/L (21-32) Anion Gap 7 (6-14) Blood Urea Nitrogen 33 mg/dL (8-26) H Creatinine 1.1 mg/dL (0.7-1.3) Estimated GFR (Cockcroft-Gault) 65.4 BUN/Creatinine Ratio 30 (6-20) H Glucose Level 126 mg/dL (70-99) H Calcium Level 8.4 mg/dL (8.5-10.1) L Total Bilirubin 0.3 mg/dL (0.2-1.0) Aspartate Amino Transferase (AST) 33 U/L (15-37) Alanine Aminotransferase (ALT) 37 U/L (16-63) Alkaline Phosphatase 73 U/L (46-116) Total Protein 5.8 g/dL (6.4-8.2) L Albumin 2.9 g/dL (3.4-5.0) L Albumin/Globulin Ratio 1.0 (1.0-1.7) Lipase 187 U/L (73-393) Urine Collection Type Unknown Urine Color Yellow Urine Clarity Clear Urine pH 7.0 Urine Specific [place] 1.015 Urine Protein Neg (NEG-TRACE) Urine Glucose (UA) Neg mg/dL (NEG) Urine Ketones (Stick) Neg mg/dL (NEG) Urine Blood Trace (NEG) Urine Nitrite Neg (NEG) Urine Bilirubin Neg (NEG) Urine Urobilinogen Dipstick 0.2 mg/dL (0.2 mg/dL) Urine Leukocyte Esterase Trace (NEG) Urine RBC Occ /HPF (0-2) Urine WBC Occ /HPF (0-4) Urine Squamous Epithelial Cells Occ /LPF Urine Bacteria 0 /HPF (0-FEW) Vital Signs: Vital Signs Date Time Temp Pulse Resp B/P (MAP) Pulse Ox O2 Delivery O2 Flow Rate FiO2 11/06/20 00:13 96 Room Air 11/05/20 23:18 98.6 72 20 136/66 (89) EKG: EKG: [] Radiology/Procedures: Radiology/Procedures: [] Heart Score: C/O Chest Pain: N/A Risk Factors: Risk Factors: DM, Current or recent (<one month) smoker, HTN, HLP, family history of CAD, obesity. Risk Scores: Score 0 - 3: 2.5% MACE over next 6 weeks - Discharge Home Score 4 - 6: 20.3% MACE over next 6 weeks - Admit for Clinical Observation Score 7 - 10: 72.7% MACE over next 6 weeks - Early Invasive Strategies Course & Med Decision Making: Course & Med Decision Making Pertinent Labs and Imaging studies reviewed. (See chart for details) []Treatment with zofran and morphine. Patient re-evaluated post treatment-- states abdominal pain resolved. Lab-- K+ 2.9 KCL IV ordered. Patient became agitated requesting to be discharge. Yelling out for the fast food team member. Asking for 911 to be called. Advised patient CT imaging not reported. Patient signed out AMA prior to CT results. Rx K+ and magnesium citrate transmitted to Pharmacy. Rosa Disclaimer: Rosa Disclaimer: This electronic medical record was generated, in whole or in part, using a voice recognition dictation system. Departure Departure: Impression: Primary Impression: Left against medical advice Additional Impressions: Abdominal pain Hypokalemia Constipation Disposition: LEFT AGAINST MEDICAL ADVICE Referrals: PCP,UNKNOWN (PCP) Patient Instructions: Abdominal Pain, Constipation, Adult, Hypokalemia Scripts Magnesium Citrate (MAGNESIUM CITRATE) 296 Ml Solution 296 ML PO ONCE, #296 ML Prov: BEN BROWN I DO 11/06/20 Potassium Chloride (POTASSIUM CHLORIDE ) 20 Meq Tablet.er 20 MEQ PO DAILY for SUPPLEMENT, #10 TAB Prov: BEN BROWN I DO 11/06/20 BEN BROWN DO November 06, 2020 01:33
== END 2020-11-06 01:30 | disposition left against medical advice (07) ==
LOC: ER 23:18
DX: K59.00 Constipation, unspecified (principal); R33.9 Retention of urine, unspecified; E87.6 Hypokalemia; I11.0 Hypertensive heart disease with heart failure; I50.9 Heart failure, unspecified; J44.9 Chronic obstructive pulmonary disease, unspecified; F10.10 Alcohol abuse, uncomplicated; F17.210 Nicotine dependence, cigarettes, uncomplicated
CPT/HCPCS: 36415; 74177; 80053; 81001; 83690; 85025; 96374; 96375; 99285; J2270; J2405; Q9967

== ENCOUNTER 2020-11-08 07:56 | Emergency (ER) | payer MEDICARE, OTHER ==
[~2020-11-08] VITALS: Ht 172.7 cm; Wt 79.1 kg
[~2020-11-08 07:56] MED LIST changes: +MAGN296S68 PO
--- NOTE | 2020-11-08 08:20 | PHYS DOC ---
Past History Past Medical History: Alcoholism, Anemia, CAD, CHF, COPD, Dementia, High Cholesterol, Hypertension, Prostatitis, Other Additional Past Medical Histor: ETOH ABUSE Past Surgical History: No Surgical History Additional Past Surgical Histo: UNKNOWN Smoking: Cigarettes Alcohol Use: Heavy General Adult EDM: Chief Complaint: constipation HPI: HPI: 75-year-old male who is on hospice presents with constipation. The patient's not really telling us what is going on except that he says he needs to poop. We asked him if he came in because he is constipated, he says yes. He says that he took magnesium citrate yesterday and had a bowel movement. He does not provide any other history. Review of Systems: Review of Systems: Constitutional: Denies fever or chills Eyes: Denies change in visual acuity HENT: Denies nasal congestion or sore throat Respiratory: Denies cough or shortness of breath Cardiovascular: Denies chest pain or edema GI: Constipation. Denies abdominal pain, nausea, vomiting, bloody stools or diarrhea : Denies dysuria Musculoskeletal: Denies back pain or joint pain Integument: Denies rash Neurologic: Denies headache, focal weakness or sensory changes Endocrine: Denies polyuria or polydipsia Lymphatic: Denies swollen glands Psychiatric: Denies depression or anxiety Allergies: Allergies: Allergies Coded Allergies Type Severity Reaction Last Updated Verified No Known Drug Allergies 11/08/20 No Physical Exam: PE: Constitutional: Well developed, well nourished, no acute distress. [] HENT: Normocephalic, atraumatic, bilateral external ears normal, oropharynx moist, no oral exudates, nose normal. [] Eyes: PERRLA, EOMI, conjunctiva normal, no discharge. [] Neck: Normal range of motion, no tenderness, supple, no stridor. [] Cardiovascular: Heart rate regular rhythm, no murmur [] Lungs & Thorax: Bilateral breath sounds clear to auscultation [] Abdomen: Urinary catheter in place. Bowel sounds normal, soft, no tenderness, no masses, no pulsatile masses. [] Skin: Warm, dry, no erythema, no rash. [] Back: No tenderness, no CVA tenderness. [] Extremities: No tenderness, no cyanosis, no clubbing, ROM intact, no edema. [] Neurologic: Alert and oriented X 3, normal motor function, normal sensory function, no focal deficits noted. [] Psychologic: Affect normal, judgement normal, mood normal. [] EKG: EKG: [] Radiology/Procedures: Radiology/Procedures: [] Heart Score: C/O Chest Pain: N/A Risk Factors: Risk Factors: DM, Current or recent (<one month) smoker, HTN, HLP, family history of CAD, obesity. Risk Scores: Score 0 - 3: 2.5% MACE over next 6 weeks - Discharge Home Score 4 - 6: 20.3% MACE over next 6 weeks - Admit for Clinical Observation Score 7 - 10: 72.7% MACE over next 6 weeks - Early Invasive Strategies Course & Med Decision Making: Course & Med Decision Making Pertinent Labs and Imaging studies reviewed. (See chart for details) The patient only asked for still with his constipation. I gave him a bottle of magnesium citrate. He has not had output in the ER thus far. The patient states he would like to go home now. He is stable for discharge. [] Dragon Disclaimer: Rosa Disclaimer: This electronic medical record was generated, in whole or in part, using a voice recognition dictation system. Departure Departure: Impression: Primary Impression: Constipation Disposition: HOME / SELF CARE / HOMELESS Condition: STABLE Referrals: PCP,UNKNOWN (PCP) Patient Instructions: Constipation, Adult, [id number] CLEMENCIA RICH DO November 08, 2020 08:20
[2020-11-08] MEDS ORDERED: MAGNESIUM CITRATE 296 ML SOLUTION. PO ONE (08:30)
--- NOTE | 2020-11-08 10:09 | RAD ---
Supine abdomen. HISTORY: Constipation Supine views were taken of the abdomen. There is increased stool in the colon. There is increased sto ol at the rectum with a possible fecal impaction. There is nonspecific small bowel gas without defini te obstruction. IMPRESSION: 1. Increased stool in the colon and rectum. 2. Possible fecal impaction at the rectum. 3. Nonspecific small bowel gas. Electronically signed by: Ed Mccarty MD (11/08/2020 10:06 AM) [facility]
[2020-11-08] MEDS ORDERED: SODIUM PHOSPHATES 19/7GM 133 ML ENEMA. ONE (10:12)
[2020-11-08] MEDS ORDERED: SODIUM PHOSPHATES 19/7GM 133 ML ENEMA. PR ONE (10:30)
[2020-11-08] MEDS ORDERED: PEG 3350/NA SULF,BICARB,CL/KCL 4,000 ML SOLUTION. PO ONE (11:15)
[2020-11-08 11:20] VITALS: BP 122/72
== END 2020-11-08 11:20 | disposition home or self-care (01) ==
LOC: ER 07:56
DX: K59.00 Constipation, unspecified (principal); F10.10 Alcohol abuse, uncomplicated; F17.210 Nicotine dependence, cigarettes, uncomplicated; I11.0 Hypertensive heart disease with heart failure; I50.9 Heart failure, unspecified; J44.9 Chronic obstructive pulmonary disease, unspecified
CPT/HCPCS: 74018; 99283-25

== ENCOUNTER 2020-11-09 00:43 | Emergency (ER) | payer MEDICARE, OTHER ==
[~2020-11-09] VITALS: Ht 172.7 cm; Wt 79.1 kg
[2020-11-09 00:53] VITALS: BP 100/51
[2020-11-09] MEDS ORDERED: oxyCODONE/APAP 5/325 1 TAB TABLET PO ONE (01:00)
--- NOTE | 2020-11-09 01:01 | PHYS DOC ---
Past History Past Medical History: Alcoholism, Anemia, CAD, CHF, COPD, Dementia, High Cholesterol, Hypertension, Prostatitis, Other Additional Past Medical Histor: ETOH ABUSE Past Surgical History: No Surgical History Additional Past Surgical Histo: UNKNOWN Smoking: Cigarettes Alcohol Use: Heavy Adult General Chief Complaint Chief Complaint: CATHETER CHANGE HPI HPI Patient is a 75-year-old man with a Barreto catheter in place who presents to the emergency department with a request to change out his Barreto catheter. States he was here yesterday and had it replaced, but thinks he accidentally pulled out some and thinks it is kinked. States it is still draining normally but would like it changed. Denies any other medical complaints at this time. Review of Systems Review of Systems Review of systems otherwise unremarkable except noted in HPI Allergies Allergies Allergies Coded Allergies Type Severity Reaction Last Updated Verified No Known Drug Allergies 11/09/20 No Physical Exam Physical Exam Constitutional: Well developed, well nourished, no acute distress, non-toxic appearance. [] Cardiovascular:Heart rate regular rhythm, no murmur [] Lungs & Thorax: No respiratory distress Abdomen: Bowel sounds normal, soft, no tenderness, no masses, no pulsatile masses. [] : Barreto catheter in place, draining urine well with normal penis, scrotum and no injuries and no tenderness Back: No tenderness, no CVA tenderness. [] Extremities: No tenderness, no cyanosis, no clubbing, ROM intact, no edema. [] Neurologic: Alert and oriented X 3, no focal deficits noted. [] Psychologic: Affect normal, judgement normal, mood normal. [] Current Patient Data Vital Signs Vital Signs Date Time Temp Pulse Resp B/P (MAP) Pulse Ox O2 Delivery O2 Flow Rate FiO2 11/09/20 00:53 98.9 63 18 100/51 (67) 95 Room Air EKG EKG [] Radiology/Procedures Radiology/Procedures [] Heart Score C/O Chest Pain: No Risk Factors: Risk Factors: DM, Current or recent (<one month) smoker, HTN, HLP, family history of CAD, obesity. Risk Scores: Risk Factors: DM, Current or recent (<one month) smoker, HTN, HLP, family history of CAD, obesity. Course & Med Decision Making Course & Med Decision Making Patient is a 75-year-old male who presents with a chief complaint of wanting his Barreto catheter changed Vital signs not concerning. Physical exam noted above. Barreto catheter changed with no complications and draining urine well. Discussed all findings with patient and advised to follow-up with primary care physician to discuss ED visit. Gave return precautions to the ED. Family grateful, verbalized understanding and agreed with plan of discharge. [] Dragon Disclaimer Dragon Disclaimer This electronic medical record was generated, in whole or in part, using a voice recognition dictation system. Departure Departure: Impression: Primary Impression: Urinary catheter (Barreto) change required Disposition: HOME / SELF CARE / HOMELESS Condition: GOOD Referrals: PCP,UNKNOWN (PCP) ANAT BAJWA MD Patient Instructions: Barreto Catheter Care, Adult Additional Instructions: Please read all the attached information very carefully on taking care of your Barreto catheter. Please follow-up with your primary care physician or call the primary care physician at the number provided if you do not have 1 to establish care, discuss ED visit and set up a follow-up as soon as possible. Please come back to the emergency department immediately with new or concerning symptoms as discussed. ADRIAN MENDIOLA MD November 09, 2020 01:01
== END 2020-11-09 01:11 | disposition home or self-care (01) ==
LOC: ER 00:43
DX: I11.0 Hypertensive heart disease with heart failure (principal); I50.9 Heart failure, unspecified; J44.9 Chronic obstructive pulmonary disease, unspecified; F10.10 Alcohol abuse, uncomplicated; F17.210 Nicotine dependence, cigarettes, uncomplicated; Z46.6 Encounter for fitting and adjustment of urinary device
CPT/HCPCS: 51702; 99284-25

== ENCOUNTER 2020-11-09 23:03 | Emergency (ER) | payer MEDICARE, OTHER ==
[2020-11-09 00:53] VITALS: BP 100/51
== END 2020-11-09 23:10 | disposition left against medical advice (07) ==
LOC: ER 23:03
DX: M79.10 Myalgia, unspecified site (principal); Z53.21 Procedure and treatment not carried out due to patient leaving prior to being seen by health care provider

== ENCOUNTER 2020-11-10 01:10 | Observation (INO) | payer MEDICARE, OTHER ==
[~2020-11-10] VITALS: Ht 182.9 cm; Wt 70.6 kg
[2020-11-10] MEDS ORDERED: NALOXONE 0.4 MG/ML VIAL. ONE (01:26)
[2020-11-10] MEDS ORDERED: IV RINGERS SOLUTION,LACTATED 1,000 ML IV ONE (01:30)
[2020-11-10] MEDS ORDERED: NALOXONE 0.4 MG/ML VIAL. IV ONE (01:30)
[2020-11-10 01:44] LABS: BGAS PH 7.55 (7.35-7.46)
[2020-11-10 01:50] LABS: BASO % 1 % (0-3); EOS # 0.1 x10^3/uL (0.0-0.7); EOS % 1 % (0-3); HEMATOCRIT 36.9 % (39.0-53.0); HEMOGLOBIN 12.5 g/dL (13.0-17.5); LYMPH # 1.6 x10^3/uL (1.0-4.8); LYMPH % 21 % (24-48); MEAN CORPUSCULAR HEMOGLOBIN 33 pg (25-35); MEAN CORPUSCULAR HGB CONC 34 g/dL (31-37); MEAN CORPUSCULAR VOLUME 97 fL (79-100); MONO # 0.9 x10^3/uL (0.0-1.1); MONO % 11 % (0-9); NEUT # 5.3 x10^3uL (1.8-7.7); NEUT % 67 % (31-73); PLATELET COUNT 224 x10^3/uL (140-400); RED BLOOD COUNT 3.81 x10^6/uL (4.30-5.70); WHITE BLOOD COUNT 7.9 x10^3/uL (4.0-11.0)
[2020-11-10] MEDS ORDERED: MIDAZOLAM HCL PF 5 MG/5 ML VIAL. ONE (01:51)
--- NOTE | 2020-11-10 02:08 | PHYS DOC ---
Past History Past Medical History: Alcoholism, Anemia, CAD, CHF, COPD, Dementia, High Cholesterol, Hypertension, Prostatitis, Other Additional Past Medical Histor: ETOH ABUSE Past Surgical History: No Surgical History Additional Past Surgical Histo: UNKNOWN Smoking: Cigarettes Alcohol Use: Heavy Adult General Chief Complaint Chief Complaint: ALTERED MENTAL STATUS HPI HPI Patient is a 75-year-old male with a past medical history significant for BPH with indwelling Barreto, alcoholism, dementia, obstructive sleep apnea for which he does not use his machinery, and CAD who presents to the emergency department with his son for chief complaint of altered mental status. Son states that he does live with him and over the last 3 days he seemed much more irritable than usual and over the last day seems strangely sleepy but then wakes up and gets irritated. Denies any recent travel, traumas, illnesses, nausea, vomiting, diarrhea. States he thinks he is taking all of his medications including opioids as prescribed. States that he is on a fentanyl patch and morphine tablets daily. States he was an alcoholic but did cut back over the last few months to 4 5 beers daily. Son states that he is not sure if he is actually been sneaking any extra or not but it would not surprise him. States that his last actual alcoholic drink was 3 days ago as the family has been at the house and been given him nonalcoholic beverages. States that he gets agitated and says things like he is hallucinating. Review of Systems Review of Systems Review of systems unobtainable Current Medications Current Medications Current Medications Medications (Trade) Dose Ordered Sig/Shun Start Time Stop Time Status Last Admin Dose Admin Lactated Ringer's 1,000 ml @ 1,000 mls/hr 1X ONCE 11/10/20 01:30 11/10/20 02:29 11/10/20 01:32 1,000 MLS/HR Midazolam HCl (Versed) 5 mg STK-MED ONCE 11/10/20 01:51 11/10/20 01:51 DC Naloxone HCl (Narcan) 0.4 mg 1X ONCE 11/10/20 01:30 11/10/20 01:31 DC 11/10/20 01:28 0.4 MG Allergies Allergies Allergies Coded Allergies Type Severity Reaction Last Updated Verified No Known Drug Allergies 11/09/20 No Physical Exam Physical Exam Constitutional: Well developed, well nourished, HENT: Normocephalic, atraumatic, oropharynx moist, no oral exudates, nose normal. [] Eyes: Pupils approximately 1 mm bilaterally and sluggishly responsive to light, conjunctiva normal, no discharge. [] Neck: Normal range of motion, supple, no stridor. [] Cardiovascular:Heart rate regular rhythm, no murmur [] Lungs & Thorax: Bilateral breath sounds clear to auscultation [] Abdomen: Bowel sounds normal, soft, no tenderness, no masses, no pulsatile masses. [] Skin: Warm, dry, no erythema, no rash. [] Back: No tenderness, no CVA tenderness. [] Extremities: No tenderness, no cyanosis, no clubbing, ROM intact, no edema. [] Neurologic: Awake, and alert, but agitated, laughing and apparently either having auditory or visual hallucinations transiently. Moving all extremities without issue. Appears to have full sensation. No dysarthria or slurring of speech or facial droop. Not responding appropriately to questions. Psychologic: Appears to be either having auditory and/or visual hallucinations, labile mood going from laughing to agitated and yelling. Current Patient Data Lab Results Laboratory Tests Test 11/10/20 01:15 11/10/20 01:17 11/10/20 01:29 White Blood Count 7.9 x10^3/uL (4.0-11.0) Red Blood Count 3.81 x10^6/uL (4.30-5.70) L Hemoglobin 12.5 g/dL (13.0-17.5) L Hematocrit 36.9 % (39.0-53.0) L Mean Corpuscular Volume 97 fL (79-100) Mean Corpuscular Hemoglobin 33 pg (25-35) Mean Corpuscular Hemoglobin Concent 34 g/dL (31-37) Red Cell Distribution Width 13.0 % (11.5-14.5) Platelet Count 224 x10^3/uL (140-400) Neutrophils (%) (Auto) 67 % (31-73) Lymphocytes (%) (Auto) 21 % (24-48) L Monocytes (%) (Auto) 11 % (0-9) H Eosinophils (%) (Auto) 1 % (0-3) Basophils (%) (Auto) 1 % (0-3) Neutrophils # (Auto) 5.3 x10^3uL (1.8-7.7) Lymphocytes # (Auto) 1.6 x10^3/uL (1.0-4.8) Monocytes # (Auto) 0.9 x10^3/uL (0.0-1.1) Eosinophils # (Auto) 0.1 x10^3/uL (0.0-0.7) Basophils # (Auto) 0.0 x10^3/uL (0.0-0.2) Glucose (Fingerstick) 106 mg/dL (70-99) H Blood pH 7.55 (7.35-7.46) H Blood Gas PCO2 45 mmHg (35-46) Blood Gas PO2 86 mmHg (71-100) Blood Gas HCO3 39 mmol/L (21-28) H Arterial Bld O2 Saturation (Calc) 97 % (92-99) FiO2 21 % EKG EKG [] Radiology/Procedures Radiology/Procedures [] Heart Score C/O Chest Pain: N/A Risk Factors: Risk Factors: DM, Current or recent (<one month) smoker, HTN, HLP, family history of CAD, obesity. Risk Scores: Risk Factors: DM, Current or recent (<one month) smoker, HTN, HLP, family history of CAD, obesity. Course & Med Decision Making Course & Med Decision Making Patient is a 75-year-old male presents this time for chief complaint of 3 days of agitation and altered mental status over the last day especially over the last few hours. Initial vital signs notable for tachycardia, and hypertension. Glucose 106. Given Narcan due to pinpoint pupils and fentanyl patch found on back with essentially no response. Placed on the monitor with IV access established and IV fluid begun. Given patient's history per son, agitation and hallucinations with no recent history of illnesses or fevers alcohol withdrawal/delirium tremens is on the diffe rential as well as sepsis and possibly hypothyroidism. Patient given 3 mg of Versed and responded very well, with education decreasing, able to fall asleep but easily aroused and autonomic instability decreased. Son stated that he was an alcoholic and over the last few months has been only drinking 3-5 beers daily but thinks he may have been sneaking some alcohol as well. States that there has been family around over the last few days and his last known alcoholic drink was 3 days ago. EKG and troponin not concerning. Laboratory analysis notable for mild hypokalemia. Urinalysis not concerning. Patient continued on IV fluid resuscitation with banana bag. Patient given Lasix and given a dose of Levaquin as chest x-ray suggestive of pulmonary edema versus atypical pneumonia. Discussed patient with Dr. Kevin Wild for admission to [facility] for continued evaluation and treatment of probable alcohol withdrawal/altered mental status and abnormal chest x-ray. Dr. Recinos accepted and patient was admitted to the hospital. Discussed findings and plan with son who verbalized understanding, and agreed with plan of admission. [] Dragon Disclaimer Dragon Disclaimer This electronic medical record was generated, in whole or in part, using a voice recognition dictation system. Departure Departure: Impression: Primary Impression: Altered mental status Additional Impressions: Alcohol withdrawal Hypokalemia Abnormal chest x-ray Disposition: ADMITTED INPATIENT Admitting Physician: Kevin Wild Condition: IMPROVED Referrals: PCP,UNKNOWN (PCP) Problem Qualifiers ADRIAN MENDIOLA MD November 10, 2020 02:07
[2020-11-10 02:13] LABS: BILIRUBIN,URINE NEG (NEG); CLARITY,URINE CLEAR; COLOR,URINE YELLOW; GLUCOSE,URINE NEG (NEG); NITRITE,URINE NEG (NEG); UROBILINOGEN,URINE 0.2 mg/dL (0.2 mg/dL)
[2020-11-10 02:14] LABS: BACTERIA,URINE FEW /HPF (0-FEW); SQUAMOUS EPITHELIAL CELL,UR OCC /LPF
[2020-11-10] MEDS ORDERED: FOLIC ACID 1 MG TABLET PO ONE (02:15)
[2020-11-10] MEDS ORDERED: MVI, ADULT NO.4 WITH VIT K 10 ML, THIAMINE INJ 100 MG in IV RINGERS SOLUTION,LACTATED 1... IV ONE (02:15)
[2020-11-10 02:18] LABS: CALCIUM 9.1 mg/dL (8.5-10.1); CREATININE 0.9 mg/dL (0.7-1.3); GFR 82.5; POTASSIUM 3.3 mmol/L (3.5-5.1)
[2020-11-10 02:21] LABS: ALBUMIN 3.2 g/dL (3.4-5.0); ALBUMIN/GLOBULIN RATIO 1.1 (1.0-1.7); MAGNESIUM 2.1 mg/dL (1.8-2.4); TOTAL BILIRUBIN 0.5 mg/dL (0.2-1.0); TOTAL PROTEIN 6.2 g/dL (6.4-8.2)
[2020-11-10] MEDS ORDERED: ONDANSETRON PF 4 MG/2 ML VIAL. IVP PRN (03:00)
[2020-11-10] MEDS ORDERED: cloNIDine HCL 0.1 MG TABLET PO PRN (03:00)
--- NOTE | 2020-11-10 03:00 | RAD ---
INDICATION: Reason: AMS / Spl. Instructions: / History: COMPARISON: August 01, 2020 TECHNIQUE: Axial CT images obtained through the head without intravenous contrast. One or more of the following individualized dose reduction techniques were utilized for this examinat ion: 1. Automated exposure control; 2. Adjustment of the mA and/or kV according to patient size; 3 . Use of iterative reconstruction technique. FINDINGS: No intracranial hemorrhage. No midline shift. Basal cisterns patents. Ventricles and sulci are globally prominent. This appears asymmetric and more prominent on the left w ith prominent subdural space again seen. No acute osseous abnormality. Orbits and paranasal sinuses unremarkable. Scattered foci of low attenuation within the white matter. IMPRESSION: 1. No acute intracranial hemorrhage. 2. Scattered regions of low attenuation within the white matter. Non-specific in nature but frequen tly secondary to small vessel ischemic disease. If there is high concern for acute causes clinically MRI could better assess that this is all chronic in nature or if there is any superimposed acute etio logy. 3. Prominence of ventricles and sulci which is frequently secondary to age related volume loss. Electronically signed by: Donte Diego MD (11/10/2020 2:58 AM) [id number]
--- NOTE | 2020-11-10 03:01 | EKG ---
[address] [address] Test Date: 2020-11-10 Test Time: 02:54:07 Pat Name: MADY COREA Department: Room: Gender: M Financial Service Representative: CRISTIANE : 1945 Requested By: ADRIAN MENDIOLA Order Number: [id number] Reading MD: Measurements Intervals [place] Rate: 81 P: 77 MI: 164 QRS: 68 QRSD: 108 T: 40 QT: 414 QTc: 487 Interpretive Statements SINUS RHYTHM ATRIAL PREMATURE COMPLEX(ES) PROLONGED QT NO SPECIFIC ECG ABNORMALITIES RI6.02 No previous ECG available for comparison
[2020-11-10] MEDS ORDERED: THIAMINE 200 MG/2 ML VIAL. IV ONE (03:41)
[2020-11-10] MEDS ORDERED: MVI, ADULT NO.4 WITH VIT K 10 ML VIAL IV ONE (03:41)
--- NOTE | 2020-11-10 03:42 | RAD ---
INDICATION: Reason: AMS / Spl. Instructions: / History: COMPARISON: October 25, 2020 FINDINGS: Single view of chest obtained. Cardiac mediastinal silhouette is prominent in size but similar to prior with calcific atherosclerosi s. A definite new region of airspace consolidation is not identified. Mild nodular opacity left lower lung again seen. IMPRESSION: * Mild nodular opacity at the left lower lung is again seen without a new region of consolidation. Electronically signed by: Donte Diego MD (11/10/2020 3:39 AM) Phase III [id number]
[2020-11-10] MEDS ORDERED: FUROSEMIDE 20 MG/2 ML VIAL IVP ONE (03:45)
[2020-11-10 04:19] LABS: BARBITURATES POS (NEG); BENZODIAZEPINES NEG (NEG); CANNABINOIDS NEG (NEG); COCAINE NEG (NEG); METHADONE NEG (NEG); OPIATES POS (NEG); PHENCYCLIDINE NEG (NEG)
[2020-11-10 04:23] LABS: AMPHETAMINE/METHAMPHETAMINE NEG (NEG)
--- NOTE | 2020-11-10 04:45 | NUR ---
Pt admitted from ER to [address] [place] [address] room 124 via [facility], accompanied by EMS and nursing staff. Pt moved from [place] to bed x 4 assist. Pt very drowsy but verbally aggressive and inappropriate with staff when awake ("all women are stupid", "you want some drugs...I can get you drugs" and wanted "everyone to come look at my wonderful penis...everyone in town wants it!!"). Pt here for AMS, Etoh withdrawal. Pt has been to our ER 8 times this month already, noted to be aggressive with staff and often leaves AMA. Pt unable to answer admitted question, just rambles inappropriately. Health history per recent admission. Pt unsure of home medications. Pt with Chronic Barreto catheter, 12F noted. PT/OT, CM and Diet consulted in computer. Pt was given written information regarding hospital policies, unit procedures and contact persons. Pt had no valuables but underware. Bed rails padded for Etoh withdrawal/Seizure precautions. Bed alarm on.
[2020-11-10 05:00] VITALS: BP 157/67
[2020-11-10] MEDS ORDERED: MIDAZOLAM HCL PF 5 MG/5 ML VIAL. IV ONE (07:15)
[2020-11-10] MEDS ORDERED: MVI, ADULT NO.4 WITH VIT K 10 ML, THIAMINE INJ 100 MG, FOLIC ACID INJ 1 MG in IV NORMAL... IV SCH (09:00)
--- NOTE | 2020-11-10 09:41 | NUR ---
NURSING NOTE DR OWEN HERE FOR ROUNDS, DR OWEN NOTIFIED OF PT TELEMETRY, PT SA, SB, WITH PVC'S, ALL OVER THE PLACE ON THE MONITOR, PER DR OWEN, NO FURTHER ACTIONS NEEDED AT THIS TIME. PT/OT SCREENED PT, PT NOT APPROPRIATE AT THIS TIME. PT CURRENTLY IN BED RESTING, PER DR OWEN, LET HIM SLEEP AT THIS TIME. CHRISTIAN MCKINLEY.
--- NOTE | 2020-11-10 11:05 | HP ---
ATTENDING PHYSICIAN: Dr. Wild. CHIEF COMPLAINT: Alcohol withdrawal. HISTORY OF PRESENT ILLNESS: The patient is a 75-year-old gentleman chronic alcoholic who has been admitted to our service many times. He has been very unpleasant and frequently leaves the hospital against medical advice. Family brings him in with withdrawal symptoms. He has been debilitated. He has been ill, but the family is still enabling him by providing alcohol with him. We are not clear of the last drink. He did not have active seizure though he was very agitated. He was started on CIWA protocol. He is sleeping right now and snoring. He is admitted for further treatment evaluation and impending delirium tremens. 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 MEDICATIONS: Reviewed and the question whether this is compliant remains to be seen. He was scheduled to take carvedilol, docusate, Aricept, hyoscyamine, Imdur, Synthroid, Lidoderm patch, lisinopril, magnesium citrate, nitroglycerin, potassium, Mysoline, Aldactone, torsemide, and Hytrin. ALLERGIES: He has no recorded drug allergies. SOCIAL HISTORY: He is a smoker. He also drinks alcohol to excess. FAMILY HISTORY: Unobtainable. REVIEW OF SYSTEM: Unobtainable. PHYSICAL EXAMINATION: GENERAL: When I saw him, this is an elderly gentleman who is snoring and fast asleep. VITAL SIGNS: Initial vital signs showed a blood pressure of 121/74 mmHg, pulse ranged between 40 and 80, he has a sinus rhythm with arrhythmia, temperature 97.7 degrees Fahrenheit, oxygen saturation 96% on room air. HEENT: Head is without trauma. Pupils are reactive. Sclerae nonicteric. Oropharynx is clear. NECK: Supple. No bruits. No stridor. LUNGS: Shallow respirations. CARDIOVASCULAR: Shows regular heart tones. No gallops or rubs. No murmurs. Peripheral pulses are palpable and full. ABDOMEN: Obese, protuberant. No organomegaly. Bowel sounds are hypoactive. EXTREMITIES: Show trace edema. NEUROLOGIC: The patient is fast asleep and obtunded. LABORATORY STUDIES: The hemoglobin is 12.5 g/dL with a white count of 7900. Sodium 133, potassium 3.3 mEq. The creatinine is 0.9 mg/dL. Toxicology screen positive for barbiturate and opiates. Urinalysis was clear. IMAGING STUDIES: In the ED, the obligatory CT of the head showed no acute changes. No midline shift, prominent ventricles. No acute changes identified. ASSESSMENT: 1. A 75-year-old gentleman with chronic alcoholism. 2. Impending delirium tremens. 3. ____ related to benzodiazepines given in the ED. 4. Generalized debilitation. 5. 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 6. Mild hyponatremia and hypokalemia. PLAN: 1. Admit to the inpatient unit. 2. Gentle IV hydration. 3. Serial chemistries. 4. [facility] protocol. DELONTE/JULI/IQB DR: Stacey TID: [id number]
[2020-11-10 15:11] VITALS: BP 108/56
[2020-11-10 19:35] VITALS: BP 127/52
[2020-11-10 22:40] VITALS: BP 107/65
[2020-11-11 05:30] VITALS: BP 139/72
--- NOTE | 2020-11-11 05:30 | NUR ---
Pt asleep in bed at change of shift. Pt woke up briefly during vital signs & assessment and ate about 50% of dinner before falling back to sleep. Pt around 2330 woke up wanting to "get up to go to the refrigerator." Redirection back to orientation of being in the hospital attempt then pt got verbally aggressive towards staff. CIWA score now 9. PRN Ativan given. Pt resting in bed remainder of shift.
--- NOTE | 2020-11-11 11:05 | NUR ---
Discharged to [facility] care. Reviewed discharge medications with sons, no questions. Wheelchair prescription given to sons with directions on how to obtain the wheelchair. Vitals signs stable, alert to self and month.
--- NOTE | 2020-11-11 16:05 | DS ---
DATE OF DISCHARGE: 11/11/2020 ATTENDING PHYSICIAN: Dr. Wild. FINAL DISCHARGE DIAGNOSES: 1. Acute on chronic alcoholism. 2. Impending delirium tremens. 3. Obtundation related to benzodiazepines. 4. Generalized debilitation. 5. Wernicke-Korsakoff syndrome. 6. Hyponatremia, hypokalemia related to alcoholism. 7. Mild dehydration. HISTORY AND PHYSICAL: The patient is a 75-year-old gentleman with multiple admissions, well known to us with chronic alcoholism. He continues to drink, has been debilitated, family brought him in. He was started on CIWA protocol. He had agitation and impending delirium tremens. PHYSICAL EXAMINATION: Please see the dictated note. PERTINENT LABORATORY AND X-RAY STUDIES: Admission hemoglobin was 12.5 g/dL, white count 7900. Electrolytes: Sodium 133, potassium 3.3. Transaminases unremarkable. Cardiac enzymes negative. HOSPITAL COURSE: The patient was started on IV hydration. We monitored him for signs of withdrawal. CIWA protocol administered, he did well. He was sober the next day and therefore he wanted to go home. Compliance has been an issue. He was stable from a medical standpoint. Therefore, he was discharged home. There were no changes on his scheduled meds, whether he takes these or not remains to be seen. I suggested continuation of his Coreg, Aricept, hyoscyamine, Imdur, Synthroid, Lidoderm patch, nitroglycerin, potassium supplementation, Aldactone, torsemide and terazosin, doses unchanged. His prognosis is certainly poor. Strong encouragement to avoid alcohol use. This is hard to consider since he has been noncompliant in the past. He was discharged then from our hospital in stable condition with explicit drug and followup care. JAZMÍN DR: Stacey TID: [id number]
[2020-11-15] MEDS ORDERED: MULTIVITAMIN with MINERAL TABLET. PO SCH (09:00)
[2020-11-15] MEDS ORDERED: THIAMINE INJ 100 MG in IV NORMAL SALINE 50ML 50 ML IV SCH (09:00)
[2020-11-15] MEDS ORDERED: FOLIC ACID 1 MG TABLET PO SCH (09:00)
== END 2020-11-11 10:45 | disposition home or self-care (01) ==
LOC: ER 01:10 → 1 SOUTH 02:48 → INTOOBSV 02:48
PROVIDERS: ADMIT Hospitalist; ATTEND Hospitalist
DX: F10.239 Alcohol dependence with withdrawal, unspecified (principal); R53.81 Other malaise; F03.90 Unspecified dementia, unspecified severity, without behavioral disturbance, psychotic disturbance, mood disturbance, and anxiety; E87.1 Hypo-osmolality and hyponatremia; E87.6 Hypokalemia; I11.0 Hypertensive heart disease with heart failure; I50.9 Heart failure, unspecified; J44.9 Chronic obstructive pulmonary disease, unspecified; D64.9 Anemia, unspecified; I25.10 Atherosclerotic heart disease of native coronary artery without angina pectoris; E78.00 Pure hypercholesterolemia, unspecified; N40.0 Benign prostatic hyperplasia without lower urinary tract symptoms; E03.9 Hypothyroidism, unspecified; F04 Amnestic disorder due to known physiological condition; E86.0 Dehydration; F10.26 Alcohol dependence with alcohol-induced persisting amnestic disorder; F17.210 Nicotine dependence, cigarettes, uncomplicated; Z91.19 Patient's noncompliance with other medical treatment and regimen; Y90.9 Presence of alcohol in blood, level not specified
CPT/HCPCS: 36415; 36600; 70450; 71045; 80053; 80307; 81001; 82607; 82746; 82803; 82947; 83605; 83735; 84443; 84484; 85025; 87040; 87086; 93005; 96365; 96366; 96367; 96375; 96376; 99285; G0378; J1956; J2060; J2250; J2310; J7030; J7120; 96361; 96374; G0379

== ENCOUNTER 2020-11-12 19:21 | Emergency (ER) | payer MEDICARE, OTHER ==
[~2020-11-12] VITALS: Ht 203.2 cm; Wt 70.6 kg
[2020-11-12] MEDS ORDERED: IOHEXOL 300 MG/ML 75 ML VIAL. IV ONE (20:00)
[2020-11-12 20:27] LABS: HEMATOCRIT 34.5 % (39.0-53.0); HEMOGLOBIN 11.6 g/dL (13.0-17.5); RED BLOOD COUNT 3.57 x10^6/uL (4.30-5.70); WHITE BLOOD COUNT 6.1 x10^3/uL (4.0-11.0)
[2020-11-12 20:36] LABS: CALCIUM 8.5 mg/dL (8.5-10.1); CREATININE 0.7 mg/dL (0.7-1.3); GFR 110.2; POTASSIUM 3.3 mmol/L (3.5-5.1)
[2020-11-12 20:42] LABS: ALBUMIN 2.6 g/dL (3.4-5.0); ALBUMIN/GLOBULIN RATIO 0.9 (1.0-1.7); TOTAL BILIRUBIN 0.3 mg/dL (0.2-1.0); TOTAL PROTEIN 5.5 g/dL (6.4-8.2)
--- NOTE | 2020-11-12 20:46 | RAD ---
EXAM: CT Abdomen and Pelvis with IV contrast CLINICAL HISTORY: Abdominal pain. COMPARISON: none TECHNIQUE: Helical CT of the abdomen and pelvis was performed following the administration of intrave nous contrast. Axial, coronal and sagittal reformatted images were generated. PQRS compliance statement - One or more of the following individualized dose reduction techniques wer e utilized for this study: 1. Automated exposure control 2. Adjustment of the mA and/or kV according to patient size 3. Use of iterative reconstruction technique FINDINGS: Lower Chest: Linear opacities lung bases likely scarring/atelectasis. Heart is mildly enlarged. Coronary calcifica tions are seen. Abdomen and Pelvis: Liver, gallbladder, spleen and right adrenal gland as well as the pancreas are unremarkable. Mild thi ckening of the left adrenal gland is unchanged. No biliary duct dilatation. Aneurysmal dilatation of the abdominal aorta measuring 3.4 cm. Dense aortobiiliac atherosclerotic calcifications. Symmetric nephrograms. Left upper pole renal cyst is seen. No hydronephrosis. No hydroureter. Bladder wall thickening possibly from chronic outlet obstruction or cystitis. Prostate measures approximatel y 5.5 cm in transverse dimension. Diffuse rectal thickening with associated infiltration. Moderate colonic stool content is seen. No sm all or large bowel dilatation. No bowel obstruction. No abdominal or pelvic lymphadenopathy. No abdominal or pelvic ascites. Degenerative changes of the spine are seen. Decreased bone mineral de nsity. IMPRESSION: 1. Diffuse rectal wall thickening is seen, and although may be seen with proctitis given the associa kim inflammatory change, rectal mass is not excluded and can be correlated with colonoscopy as clinic ally indicated. 2. Moderate colonic stool content. 3. Abdominal aortic aneurysm is stable. Atherosclerotic calcifications of aorta and bilateral iliacs . 4. Bladder wall thickening may be seen with cystitis or chronic outlet obstruction. This can be daniel elated with urinalysis. Electronically signed by: Will Lange MD (11/12/2020 8:44 PM) DAGO
[2020-11-12 21:23] LABS: BILIRUBIN,URINE NEG (NEG); CLARITY,URINE CLEAR; COLOR,URINE YELLOW; GLUCOSE,URINE NEG (NEG)
[2020-11-12 21:24] LABS: BACTERIA,URINE 0 /HPF (0-FEW); NITRITE,URINE NEG (NEG); RBC,URINE 0 /HPF (0-2); SQUAMOUS EPITHELIAL CELL,UR OCC /LPF; UROBILINOGEN,URINE 0.2 mg/dL (0.2 mg/dL); WBC,URINE 0 /HPF (0-4)
[2020-11-12] MEDS ORDERED: MORPHINE SULFATE 4 MG/ML DISP.SYRIN. IV ONE (21:45)
--- NOTE | 2020-11-12 21:47 | PHYS DOC ---
Past History Past Medical History: Alcoholism, Anemia, CAD, CHF, COPD, Dementia, High Cholesterol, Hypertension, Prostatitis, Other Additional Past Medical Histor: ETOH ABUSE Past Surgical History: No Surgical History Additional Past Surgical Histo: UNKNOWN Smoking: Cigarettes Alcohol Use: Heavy Adult General Chief Complaint Chief Complaint: ABDOMINAL PAIN HPI HPI Patient is a 75-year-old male with a past medical history significant for dementia, alcoholism, alcohol withdrawal and chronic urinary obstruction with indwelling catheter in place who presents to the emergency department with a chief complaint of abdominal pain. States he was just discharged from the [facility] yesterday after being admitted the day before for alcohol withdrawal. States that since then he has had lower abdominal pain, 5 out of 10, dull and achy in nature. Denies headache, chest pain, shortness of breath, nausea, vomiting, blood in the stool, diarrhea. Review of Systems Review of Systems Review of systems otherwise unremarkable except noted in HPI Current Medications Current Medications Current Medications Medications (Trade) Dose Ordered Sig/Shun Start Time Stop Time Status Last Admin Dose Admin Iohexol (Omnipaque 300 Mg/ml) 75 ml 1X ONCE 11/12/20 20:00 11/12/20 20:01 DC 11/12/20 20:18 75 ML Allergies Allergies Allergies Coded Allergies Type Severity Reaction Last Updated Verified No Known Drug Allergies 11/12/20 No Physical Exam Physical Exam Constitutional: Well developed, well nourished, no acute distress, non-toxic appearance. [] HENT: Normocephalic, atraumatic, Eyes: conjunctiva normal, no discharge. [] Neck: Normal range of motion, Cardiovascular:Heart rate regular rhythm, no murmur [] Lungs & Thorax: Bilateral breath sounds clear to auscultation [] Abdomen: Bowel sounds normal, soft, no tenderness, no masses, no pulsatile masses. : Rectal exam with no obvious wounds or deformities but patient endorses tenderness. No melena or hematochezia [] Skin: Warm, dry, no erythema, no rash. [] Back: No tenderness, no CVA tenderness. [] Extremities: No tenderness, no cyanosis, no clubbing, ROM intact, no edema. [] Neurologic: Alert and oriented X 3, no focal deficits noted. [] Psychologic: Affect normal, judgement normal, mood normal. [] Current Patient Data Vital Signs Vital Signs Date Time Temp Pulse Resp B/P (MAP) Pulse Ox O2 Delivery O2 Flow Rate FiO2 11/12/20 19:41 98.1 61 18 108/72 (84) 95 Room Air Lab Results Laboratory Tests Test 11/12/20 20:10 11/12/20 21:00 White Blood Count 6.1 x10^3/uL (4.0-11.0) Red Blood Count 3.57 x10^6/uL (4.30-5.70) L Hemoglobin 11.6 g/dL (13.0-17.5) L Hematocrit 34.5 % (39.0-53.0) L Mean Corpuscular Volume 97 fL (79-100) Mean Corpuscular Hemoglobin 33 pg (25-35) Mean Corpuscular Hemoglobin Concent 34 g/dL (31-37) Red Cell Distribution Width 13.0 % (11.5-14.5) Platelet Count 209 x10^3/uL (140-400) Sodium Level 135 mmol/L (136-145) L Potassium Level 3.3 mmol/L (3.5-5.1) L Chloride Level 95 mmol/L (98-107) L Carbon Dioxide Level 37 mmol/L (21-32) H Anion Gap 3 (6-14) L Blood Urea Nitrogen 20 mg/dL (8-26) Creatinine 0.7 mg/dL (0.7-1.3) Estimated GFR (Cockcroft-Gault) 110.2 BUN/Creatinine Ratio 29 (6-20) H Glucose Level 114 mg/dL (70-99) H Calcium Level 8.5 mg/dL (8.5-10.1) Total Bilirubin 0.3 mg/dL (0.2-1.0) Aspartate Amino Transferase (AST) 22 U/L (15-37) Alanine Aminotransferase (ALT) 25 U/L (16-63) Alkaline Phosphatase 65 U/L (46-116) Total Protein 5.5 g/dL (6.4-8.2) L Albumin 2.6 g/dL (3.4-5.0) L Albumin/Globulin Ratio 0.9 (1.0-1.7) L Lipase 150 U/L (73-393) Urine Collection Type Unknown Urine Color Yellow Urine Clarity Clear Urine pH 8.0 Urine Specific Buckner 1.015 Urine Protein Neg (NEG-TRACE) Urine Glucose (UA) Neg mg/dL (NEG) Urine Ketones (Stick) Neg mg/dL (NEG) Urine Blood Neg (NEG) Urine Nitrite Neg (NEG) Urine Bilirubin Neg (NEG) Urine Urobilinogen Dipstick 0.2 mg/dL (0.2 mg/dL) Urine Leukocyte Esterase Neg (NEG) Urine RBC 0 /HPF (0-2) Urine WBC 0 /HPF (0-4) Urine Squamous Epithelial Cells Occ /LPF Urine Bacteria 0 /HPF (0-FEW) EKG EKG [] Radiology/Procedures Radiology/Procedures []INDINGS: Lower Chest: Linear opacities lung bases likely scarring/atelectasis. Heart is mildly enlarg ed. Coronary calcifications are seen. Abdomen and Pelvis: Liver, gallbladder, spleen and right adrenal gland as well as the pancreas are unremarkable. Mild thickening of the left adrenal gland is unchanged. No biliary duct dilatation. Aneurysmal dilatation of the abdominal aorta measuring 3.4 cm. Dense aortobiiliac atherosclerotic calcifications. Symmetric nephrograms. Left upper pole renal cyst is seen. No hydronephrosis. No hydroureter. Bladder wall thickening possibly from chronic outlet obstruction o r cystitis. Prostate measures approximately 5.5 cm in transverse dimension. Diffuse rectal thickening with associated infiltration. Moderate colonic stool content is seen. No small or large bowel dilatation. No bowel obstruction. No abdominal or pelvic lymphadenopathy. No abdominal or pelvic ascites. Degenerative changes of the spine are seen. Decreased bone mineral density. IMPRESSION: 1. Diffuse rectal wall thickening is seen, and although may be seen with proctitis given the associated inflammatory change, rectal mass is not excluded and can be correlated with colonoscopy as clinically indicated. 2. Moderate colonic stool content. 3. Abdominal aortic aneurysm is stable. Atherosclerotic calcifications of aorta and bilateral iliacs. 4. Bladder wall thickening may be seen with cystitis or chronic outlet obstruction. This can be correlated with urinalysis. Electronically signed by: Will Lange MD (11/12/2020 8:44 PM) [facility] Heart Score C/O Chest Pain: No Risk Factors: Risk Factors: DM, Current or recent (<one month) smoker, HTN, HLP, family history of CAD, obesity. Risk Scores: Risk Factors: DM, Current or recent (<one month) smoker, HTN, HLP, family history of CAD, obesity. Course & Med Decision Making Course & Med Decision Making Patient is a 75-year-old male who presents the emergency department with a chief complaint of abdominal pain Vital signs not concerning. Physical exam noted above. Patient placed on monitor with IV access established. Given morphine for pain. Started on IV fluid resuscitation. Laboratory analysis not concerning. Urinalysis not concerning. CT notable for proctitis with infiltration. Patient started on broad-spectrum antibiotics in the ED. Cultures obtained. Discussed all findings with family and recommended admission to the hospital for continued evaluation, and treatment including GI consultation. Dr. Jane requested transfer to [place]. Family grateful, verbalized understanding and agreed with plan of transfer and admission. Dragon Disclaimer Dragon Disclaimer This electronic medical record was generated, in whole or in part, using a voice recognition dictation system. Departure Departure: Impression: Primary Impression: Abdominal pain Additional Impression: Proctitis Disposition: [facility] Admitting Physician: Cony Perez Condition: IMPROVED Referrals: PCP,UNKNOWN (PCP) Problem Qualifiers ADRIAN MENDIOLA MD November 12, 2020 21:47
[2020-11-12] MEDS ORDERED: IV NORMAL SALINE 50ML 50 ML ONE (22:03)
[2020-11-12] MEDS ORDERED: cefTRIAXone SODIUM 1 GM VIAL ONE (22:04)
[2020-11-12 23:40] VITALS: BP 146/91
[2020-11-13] MEDS ORDERED: MIDAZOLAM HCL PF 5 MG/5 ML VIAL. IM ONE (00:30)
== END 2020-11-13 01:42 | disposition short-term general hospital (02) ==
LOC: ER 19:21
DX: K62.89 Other specified diseases of anus and rectum (principal); R10.30 Lower abdominal pain, unspecified; I25.10 Atherosclerotic heart disease of native coronary artery without angina pectoris; I11.0 Hypertensive heart disease with heart failure; I50.9 Heart failure, unspecified; J44.9 Chronic obstructive pulmonary disease, unspecified; F03.90 Unspecified dementia, unspecified severity, without behavioral disturbance, psychotic disturbance, mood disturbance, and anxiety; E78.00 Pure hypercholesterolemia, unspecified; F17.210 Nicotine dependence, cigarettes, uncomplicated; F10.20 Alcohol dependence, uncomplicated; Z86.2 Personal history of diseases of the blood and blood-forming organs and certain disorders involving the immune mechanism; Y90.9 Presence of alcohol in blood, level not specified
CPT/HCPCS: 36415; 74177; 80053; 81001; 83690; 85027; 96365; 96367; 96372; 96375; 99285; J0696; J2250; J2270; J3490; Q9967

== ENCOUNTER 2020-11-15 11:34 | Emergency (ER) | payer MEDICARE, OTHER ==
[~2020-11-15] VITALS: Ht 172.7 cm; Wt 70.6 kg
--- NOTE | 2020-11-15 11:52 | PHYS DOC ---
Past History Past Medical History: Alcoholism, Anemia, CAD, CHF, COPD, Dementia, High Cholesterol, Hypertension, Prostatitis, Other Additional Past Medical Histor: ETOH ABUSE Past Surgical History: No Surgical History Additional Past Surgical Histo: UNKNOWN Smoking: Cigarettes Alcohol Use: Heavy Adult General Chief Complaint Chief Complaint: SHORTNESS OF BREATH HPI HPI Patient is a 75-year-old male presenting with son for shortness of breath. Reports this is an acute on chronic issue. Has history of COPD and still actively smokes. Admits he has been taking his inhalers daily without compliant issues, continues to utilize cigarettes daily as well. Reports yesterday evening having more shortness of breath. Woke up this morning and voiced shortness of breath to his son who administered 15 mg of morphine without relief in symptoms prompting him to take father to our ER for evaluation. During history gathering, patient became agitated and voiced he wanted to leave and go home. I tried discussing with patient and son more about history of presenting illness and clarify fact that patient is on hospice, they started disagreeing with each other which agitated patient more prompting him to continue voicing that he was done and wanted to go home to be home with his Review of Systems Review of Systems Fourteen body systems of review of systems have been reviewed. See HPI for pertinent positives and negative responses, other kingsley all other systems are negative, non-pertinent or non-contributory Allergies Allergies Allergies Coded Allergies Type Severity Reaction Last Updated Verified No Known Drug Allergies 11/12/20 No Physical Exam Physical Exam Constitutional: Age-appropriate in no acute distress, appears malnourished HENT: Normocephalic, atraumatic, bilateral external ears normal, oropharynx dry with poor dentition, no oral exudates, nose normal. Eyes: PERRLA, EOMI, conjunctiva normal, no discharge. Neck: Normal range of motion, no tenderness, supple, no stridor. Cardiovascular: Heart rate bradycardic, sinus rhythm, no murmurs rubs or gallops Lungs & Thorax: No acute respiratory distress but patient is having dry nonproductive cough throughout examination, no increased work of breathing, no obvious wheezes, rhonchi's or rales Abdomen: Bowel sounds normal, soft, no tenderness, no masses, no pulsatile masses. Nonsurgical abdomen, no peritoneal signs Skin: Warm, dry, no erythema, no rash. Back: No tenderness, no CVA tenderness. Extremities: No tenderness, no cyanosis, no clubbing, ROM intact, no edema. Neurologic: Alert and oriented X 3, grossly normal motor & sensory function, no focal deficits noted. Psychologic: Unable to fully assess due to patient wanting to prematurely stop current ER evaluation Current Patient Data Vital Signs Vital Signs Date Time Temp Pulse Resp B/P (MAP) Pulse Ox O2 Delivery O2 Flow Rate FiO2 11/15/20 11:40 97.8 66 20 107/59 (75) 99 Room Air Vital Signs Date Time Temp Pulse Resp B/P (MAP) Pulse Ox O2 Delivery O2 Flow Rate FiO2 11/15/20 11:40 97.8 66 20 107/59 (75) 99 Room Air EKG EKG EKG ordered and interpreted by myself 1158 as sinus bradycardia at 41 bpm, unremarkable intervals, no axis deviation, no acute ischemic findings Radiology/Procedures Radiology/Procedures [] Heart Score C/O Chest Pain: No HEART Score for Chest Pain: HEART Score for Chest Pain Response (Comments) Value History Moderately Suspicious 1 ECG Nonspecific Repolarizatio 1 Age > 65 2 Risk Factors >3 Risk Factors or Hx CAD 2 Total 6 Risk Factors: Risk Factors: DM, Current or recent (<one month) smoker, HTN, HLP, family history of CAD, obesity. Risk Scores: Risk Factors: DM, Current or recent (<one month) smoker, HTN, HLP, family history of CAD, obesity. Course & Med Decision Making Course & Med Decision Making Patient bradycardic with heart rate ranging from 40-70 throughout exam with remaining vitals stable. Limited HPI and physical exam performed prior to patient getting agitated and voicing that he wanted to leave ER and return back home I had an extensive discussion with the patient and son at bedside regarding the risks of leaving AMA including but not limited to , permanent disability, and worsening condition. Pt acknowledged the risks and agreed to take full responsibility. Pt was A&Ox4, son who assists in medical decision making at bedside and both had full medical decision making capacity when patient signed the AMA sheet. Risks and Recommendations: The risks of refusing recommended care that were disclosed and acknowledged by the patient include loss of current lifestyle, permanent mental impairment, and . The recommended medical care being refused has been discussed with the patient and is to stay for continued monitoring, workup, and possible treatment. Discharge Care: The patient understands they are welcome to return to the hospital at any time to receive the recommended care or any other care at any time, regardless of their ability to pay for such care. Discharge instructions were provided to the patient. Rosa Disclaimer Rosa Disclaimer This electronic medical record was generated, in whole or in part, using a voice recognition dictation system. Departure Departure: Impression: Primary Impression: Left against medical advice Additional Impressions: Shortness of breath Tobacco abuse Disposition: LEFT AGAINST MEDICAL ADVICE Condition: GUARDED Referrals: PCP,UNKNOWN (PCP) Additional Instructions: You have been evaluated in the Emergency Department today. You are refusing further testing, imaging, and further admission and choosing to leave against medical advice. You were advised of your risks of leaving and understand that permanent harm, or even , can occur from failing to follow the recommendations of the physician. Please contact your hospice physician immediately after ER departure to review ER visit today and need for close follow-up KACIE Return to the Emergency Department immediately if you experience worsening or uncontrolled pain, persistent fevers, recurrent vomiting, blood in vomit, blood in stool, dark tarry stool, chest pain, shortness of breath, or for any other concerning symptoms. Problem Qualifiers MARCELINA ERAZO DO November 15, 2020 11:52
[2020-11-15 12:15] VITALS: BP 118/68
--- NOTE | 2020-11-15 12:39 | EKG ---
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
== END 2020-11-15 12:15 | disposition left against medical advice (07) ==
LOC: ER 11:34
DX: R06.02 Shortness of breath (principal); J44.9 Chronic obstructive pulmonary disease, unspecified; I11.0 Hypertensive heart disease with heart failure; I50.9 Heart failure, unspecified; E78.5 Hyperlipidemia, unspecified; F17.210 Nicotine dependence, cigarettes, uncomplicated; F10.10 Alcohol abuse, uncomplicated
CPT/HCPCS: 93005; 99283-25

== ENCOUNTER 2020-11-16 00:05 | Emergency (ER) | payer MEDICARE, OTHER ==
[2020-11-15 12:15] VITALS: BP 118/68
== END 2020-11-16 00:15 | disposition left against medical advice (07) ==
LOC: ER 00:05
DX: Z96.0 Presence of urogenital implants (principal); Z53.21 Procedure and treatment not carried out due to patient leaving prior to being seen by health care provider

== ENCOUNTER 2020-11-21 08:07 | Emergency (ER) | payer MEDICARE, OTHER ==
[~2020-11-21] VITALS: Ht 172.7 cm; Wt 70.6 kg
--- NOTE | 2020-11-21 08:51 | PHYS DOC ---
Past History Past Medical History: Alcoholism, Anemia, CAD, CHF, COPD, Dementia, High Cholesterol, Hypertension, Prostatitis Additional Past Medical Histor: ETOH ABUSE Past Surgical History: No Surgical History Additional Past Surgical Histo: UNKNOWN Smoking: Cigarettes Alcohol Use: Heavy General Adult EDM: Chief Complaint: PENIS PROBLEM HPI: HPI: 75-year-old male returns the emergency room with penis pain. The patient tells me he has had penis pain for a long time. He has had an indwelling catheter for a long time. He is supposed to be getting in to see a [facility]. [facility] was [facility] the [facility] recently and they change his catheter. He still states having a burning stinging sensation at the end of his urethra. His catheter is not obstructed. He has good urine flow. He denies fever or chills. Review of Systems: Review of Systems: Constitutional: Denies fever or chills Eyes: Denies change in visual acuity HENT: Denies nasal congestion or sore throat Respiratory: Denies cough or shortness of breath Cardiovascular: Denies chest pain or edema GI: Denies abdominal pain, nausea, vomiting, bloody stools or diarrhea : Penis pain Musculoskeletal: Denies back pain or joint pain Integument: Denies rash Neurologic: Denies headache, focal weakness or sensory changes Endocrine: Denies polyuria or polydipsia Lymphatic: Denies swollen glands Psychiatric: Denies depression or anxiety Allergies: Allergies: Allergies Coded Allergies Type Severity Reaction Last Updated Verified No Known Drug Allergies 11/12/20 No Physical Exam: PE: Constitutional: Well developed, well nourished, no acute distress, non-toxic appearance. [] HENT: Normocephalic, atraumatic, bilateral external ears normal, oropharynx moist, no oral exudates, nose normal. [] Eyes: PERRLA, EOMI, conjunctiva normal, no discharge. [] Neck: Normal range of motion, no tenderness, supple, no stridor. [] Cardiovascular: Heart rate regular rhythm, no murmur [] Lungs & Thorax: Bilateral breath sounds clear to auscultation [] Abdomen: Bowel sounds normal, soft, no tenderness, no masses, no pulsatile masses. [] Skin: Warm, dry, no erythema, no rash. [] Back: No tenderness, no CVA tenderness. [] Extremities: No tenderness, no cyanosis, no clubbing, ROM intact, no edema. [] Neurologic: Alert and oriented X 3, normal motor function, normal sensory function, no focal deficits noted. [] Psychologic: Affect normal, judgement normal, mood normal. : Circumcised, Barreto catheter in place, mild irritation of the distal urethra with no warmth or significant erythema. No signs of discharge or bleeding. [] Current Patient Data: Vital Signs: Vital Signs Date Time Temp Pulse Resp B/P (MAP) Pulse Ox O2 Delivery O2 Flow Rate FiO2 11/21/20 08:15 97.7 77 16 85/48 (60) 98 Room Air EKG: EKG: [] Radiology/Procedures: Radiology/Procedures: [] Heart Score: C/O Chest Pain: N/A Risk Factors: Risk Factors: DM, Current or recent (<one month) smoker, HTN, HLP, family history of CAD, obesity. Risk Scores: Score 0 - 3: 2.5% MACE over next 6 weeks - Discharge Home Score 4 - 6: 20.3% MACE over next 6 weeks - Admit for Clinical Observation Score 7 - 10: 72.7% MACE over next 6 weeks - Early Invasive Strategies Course & Med Decision Making: Course & Med Decision Making Pertinent Labs and Imaging studies reviewed. (See chart for details) We will give the patient a Urojet lidocaine topical for his discomfort. He is feeling better and would like to go home. [] Dragon Disclaimer: Dragon Disclaimer: This electronic medical record was generated, in whole or in part, using a voice recognition dictation system. Departure Departure: Impression: Primary Impression: Penis pain Disposition: HOME / SELF CARE / HOMELESS Condition: IMPROVED Referrals: PCP,UNKNOWN (PCP) Patient Instructions: Urethritis, Adult Scripts Lidocaine Hcl (LIDOCAINE HCL) 5 Ml Jel..ml. 1 KAYLEN TP BID PRN for PAIN for 7 Days, #30 ML 0 Refills Prov: CLEMENCIA RICH DO 11/21/20 CLEMENCIA RICH DO November 21, 2020 08:51
[2020-11-21] MEDS ORDERED: LIDOCAINE 2% JELLY 10ML IN APPLICATOR. MM ONE (09:00)
[2020-11-21] MEDS ORDERED: LIDO5JEL3 TP (09:20)
[2020-11-21 09:39] VITALS: BP 105/60
[2020-11-21 09:43] LABS: BILIRUBIN,URINE NEG (NEG); CLARITY,URINE CLEAR; COLOR,URINE STRAW; GLUCOSE,URINE NEG (NEG)
[2020-11-21 09:44] LABS: NITRITE,URINE NEG (NEG); UROBILINOGEN,URINE 0.2 mg/dL (0.2 mg/dL)
[2020-11-21 09:45] LABS: BACTERIA,URINE 0 /HPF (0-FEW); WBC,URINE RARE /HPF (0-4)
== END 2020-11-21 09:39 | disposition home or self-care (01) ==
LOC: ER 08:07
DX: N48.89 Other specified disorders of penis (principal); I11.0 Hypertensive heart disease with heart failure; I50.9 Heart failure, unspecified; J44.9 Chronic obstructive pulmonary disease, unspecified; E78.5 Hyperlipidemia, unspecified; F17.210 Nicotine dependence, cigarettes, uncomplicated
CPT/HCPCS: 81001; 99283-25

== ENCOUNTER 2020-11-21 16:46 | Emergency (ER) | payer MEDICARE, OTHER ==
[~2020-11-21] VITALS: Ht 172.7 cm; Wt 70.6 kg
[~2020-11-21 16:46] MED LIST changes: +LIDO5JEL3 TP
[2020-11-21 17:27] VITALS: BP 118/58
== END 2020-11-21 17:30 | disposition left against medical advice (07) ==
LOC: ER 16:46
DX: Z53.21 Procedure and treatment not carried out due to patient leaving prior to being seen by health care provider (principal)
CPT/HCPCS: 99283-25

== ENCOUNTER 2020-11-26 07:45 | Emergency (ER) | payer MEDICARE, OTHER ==
[~2020-11-26] VITALS: Ht 172.7 cm; Wt 70.6 kg
[2020-11-26 07:57] VITALS: BP 118/58
--- NOTE | 2020-11-26 08:03 | PHYS DOC ---
Past History Past Medical History: Alcoholism, Anemia, CAD, CHF, COPD, Dementia, High Cholesterol, Hypertension, Prostatitis Additional Past Medical Histor: ETOH ABUSE Past Surgical History: No Surgical History Additional Past Surgical Histo: UNKNOWN Smoking: Cigarettes Alcohol Use: Heavy Adult General Chief Complaint Chief Complaint: PAIN ON URINATION HPI HPI Patient is a 75-year-old here for Barreto catheter issues. He is well-known to our department and unfortunately, a poor historian. It is unclear whether he is still on hospice for undisclosed reason. He is here with son who was also a poor historian. It is reported that he was seen at [facility] for urinary retention, states he had comprehensive work-up that involved blood and urinalysis that showed no acute infection; however, decision was made to insert Barreto catheter. Patient has scheduled outpatient follow-up with urologist in 48 hours for evaluation and potential removal as indicated. Patient reports today as he has concerns that Barreto catheter is not adequately draining. Denies fever, chest pain, shortness of breath past baseline, recent changes in medication or any other ingestions, sick contacts, travel or exposures. Review of Systems Review of Systems Fourteen body systems of review of systems have been reviewed. See HPI for pertinent positives and negative responses, other kingsley all other systems are n egative, non-pertinent or non-contributory Allergies Allergies Allergies Coded Allergies Type Severity Reaction Last Updated Verified No Known Drug Allergies 11/12/20 No Physical Exam Physical Exam Constitutional: Well developed, well nourished, no acute distress, non-toxic appearance. HENT: Normocephalic, atraumatic, bilateral external ears normal, oropharynx dry with poor dentition, no oral exudates, nose normal. Eyes: PERRLA, EOMI, conjunctiva normal, no discharge. Neck: Normal range of motion, no tenderness, supple, no stridor. Cardiovascular: Heart rate regular, sinus rhythm, no murmurs rubs or gallops Lungs & Thorax: Bilateral breath sounds clear to auscultation Abdomen: Bowel sounds normal, soft, no tenderness, no masses, no pulsatile masses. Nonsurgical abdomen, no peritoneal signs : External genitalia unremarkable with well-appearing Barreto catheter in adequate position with bulb fully inflated, catheter is draining well appearing urine into bag with approximately 600 mL output present Skin: Warm, dry, no erythema, no rash. Back: No tenderness, no CVA tenderness. Extremities: No tenderness, no cyanosis, no clubbing, ROM intact, no edema. Neurologic: Alert and oriented X 3, grossly normal motor & sensory function, no focal deficits noted. Psychologic: Aggravated affect Current Patient Data Vital Signs Vital Signs Date Time Temp Pulse Resp B/P (MAP) Pulse Ox O2 Delivery O2 Flow Rate FiO2 11/26/20 07:57 81 18 118/58 (78) 95 Room Air EKG EKG [] Radiology/Procedures Radiology/Procedures [] Heart Score C/O Chest Pain: N/A Risk Factors: Risk Factors: DM, Current or recent (<one month) smoker, HTN, HLP, family history of CAD, obesity. Risk Scores: Risk Factors: DM, Current or recent (<one month) smoker, HTN, HLP, family history of CAD, obesity. Course & Med Decision Making Course & Med Decision Making Discussed with the patient all findings that were nonconcerning for any emergent or surgical findings. No indication for urinalysis at this time. No indication for removal of Barreto catheter adjustment at this time as it is in adequate position and draining well. Patient is agitated and requesting pain medication. He has known opioid medications prescribed at home but states he was in a rincon and came here for evaluation prior to taking home meds, currently has fentanyl patch on. Home narcotic medication administered here in ER satisfying patient. I reevaluated and discussed there was little indication for further diagnostic work-up in ER. As such, joint decision among myself, patient and son to discharge home with close outpatient follow-up as previously arranged. I stressed need for close outpatient follow-up to review today's ER visit. Strict return precautions were also discussed at length with good understanding by patient and son. Patient and son voiced understanding and agreement with the plan. Patient and son knows to come back for repeat evaluation if concerning signs or symptoms present prior to outpatient follow- up. Hemodynamically stable and well-appearing at time of disposition. Dragon Disclaimer Dragon Disclaimer This electronic medical record was generated, in whole or in part, using a voice recognition dictation system. Departure Departure: Impression: Primary Impression: Barreto catheter problem Additional Impression: Dementia Disposition: HOME / SELF CARE / HOMELESS Condition: STABLE Referrals: PCP,NO (PCP) Additional Instructions: As discussed prior to your departure, your vitals, physical examination and examination of your Barreto catheter were all unremarkable for any emergent or surgical findings. As discussed, you need to keep close outpatient follow-up with your urologist that is scheduled for this upcoming Tuesday. As disclosed, it is unsure the reasoning of why this Barreto catheter was placed and so, I do not feel comfortable removing this potentially to prematurely if another plan of care is in place. It was discussed the importance of returning to the same emergency department/hospital systems for your care given numerous comorbid conditions as it would better serve you for continuity of care sake. Any concerning signs or symptoms that were discussed present prior to outpatient follow-up please do not hesitate to come back for repeat evaluation. It was a pleasure to take care of you and I wish you the best going forward Problem Qualifiers MARCELINA ERAZO DO Nov 26, 2020 08:03
[2020-11-26] MEDS: MORPHINE IR 15 MG TABLET PO ONE (08:39)
== END 2020-11-26 08:48 | disposition home or self-care (01) ==
LOC: ER 07:45
DX: T83.098A Other mechanical complication of other urinary catheter, initial encounter (principal); F03.90 Unspecified dementia, unspecified severity, without behavioral disturbance, psychotic disturbance, mood disturbance, and anxiety; R33.9 Retention of urine, unspecified; F10.20 Alcohol dependence, uncomplicated; I25.10 Atherosclerotic heart disease of native coronary artery without angina pectoris; I11.0 Hypertensive heart disease with heart failure; I50.9 Heart failure, unspecified; J44.9 Chronic obstructive pulmonary disease, unspecified; E78.00 Pure hypercholesterolemia, unspecified; Z86.2 Personal history of diseases of the blood and blood-forming organs and certain disorders involving the immune mechanism; Y90.9 Presence of alcohol in blood, level not specified
CPT/HCPCS: 99283

== ENCOUNTER 2020-11-29 16:09 | Emergency (ER) | payer MEDICARE, OTHER | END 2020-11-29 16:15 | disposition left against medical advice (07) | LOC: ER 16:09 | DX: N36.8 Other specified disorders of urethra (principal); Z53.21 Procedure and treatment not carried out due to patient leaving prior to being seen by health care provider ==

== ENCOUNTER 2020-12-02 04:18 | Emergency (ER) | payer MEDICARE, OTHER ==
[~2020-12-02] VITALS: Ht 172.7 cm; Wt 70.6 kg
--- NOTE | 2020-12-02 04:22 | PHYS DOC ---
Past History Past Medical History: Alcoholism, Anemia, CAD, CHF, COPD, Dementia, High Cholesterol, Hypertension, Prostatitis Additional Past Medical Histor: ETOH ABUSE Past Surgical History: No Surgical History Additional Past Surgical Histo: UNKNOWN Smoking: Cigarettes Alcohol Use: Heavy General Adult HPI: HPI: ".. I just can't seem to get enough air tonight... My COPD.. .. I suspect.. you will probably just tell me to go home... " " I just want you to discharge me..." Patient is a 75 year old malae who presents with above hx and complaints of dyspnea and wheezing. Patient normally follows at the [facility]. Patient does have home oxygen available. Patient does not know what dosage of home oxygen he uses. Patient not currently on steroids. Patient has somewhat extensive medical history significant for dementia, chronic alcoholism, [place] costal cough syndrome, frequent ED evaluations and admissions, generalized deconditioning, hypertension, hypothyroidism, COPD, emphysema, and patient still continues to smoke. Patient has had multiple visits for a left without being se en and leaving AGAINST MEDICAL ADVICE. Patient has not received Covid vaccination. Patient denies any severe ill contacts. No recent travel. Has history of chronic problems with Bar[place] however that it does not seem to be a concern tonight. Shortly after vitals, pt. demanding discharge. Review of Systems: Review of Systems: Constitutional: Denies fever or chills Eyes: Denies change in visual acuity HENT: Denies nasal congestion or sore throat Respiratory: Complains cough and shortness of breath Cardiovascular: Denies chest pain or edema GI: Denies abdominal pain, nausea, vomiting, bloody stools or diarrhea : Denies dysuria Musculoskeletal: Denies back pain or joint pain Integument: Denies rash Neurologic: Denies headache, focal weakness or sensory changes Endocrine: Denies polyuria or polydipsia Lymphatic: Denies swollen glands Psychiatric: Denies depression or anxiety Family History: Family History: Noncontributory presentation Current Medications: Current Meds: See nursing for home meds Allergies: Allergies: Allergies Coded Allergies Type Severity Reaction Last Updated Verified No Known Drug Allergies 11/12/20 No Physical Exam: PE: Constitutional: no acute distress, intoxicated in appearance. [] HENT: Normocephalic, atraumatic, bilateral external ears normal, oropharynx moist, no oral exudates, nose normal. [] Eyes: PERRLA, EOMI, conjunctiva normal, no discharge. [] Neck: Normal range of motion, no tenderness, supple, no stridor. [] Cardiovascular: Irregular heart rate and irregular rhythm, no murmur [] PMI to left. Monitor shows a sinus rhythm with occasional PAC Lungs & Thorax: Bilateral breath sounds to apex scattered wheezes on auscultation [] Abdomen: Bowel sounds normal, soft, no tenderness, no masses, no pulsatile masses. [] Barreto placement noted Skin: Warm, dry, no erythema, no rash. [] Back: No tenderness, no CVA tenderness. [] Extremities: No tenderness, no cyanosis, no clubbing, ROM intact, no edema. Arthritic changes Neurologic: Alert and oriented X 3, normal motor function, normal sensory function, no focal deficits noted. [] Discoordination. Psychologic: Affect argumentative, demanding,, judgement-patient appears to have some dementia, mood normal. [] EKG: EKG: My interpretation EKG shows sinus rhythm at 71 bpm. Does have occasional PAC and PVC. No findings acute STEMI of contralateral changes. [] Radiology/Procedures: Radiology/Procedures: [] Heart Score: C/O Chest Pain: No HEART Score for Chest Pain: HEART Score for Chest Pain Response (Comments) Value History Slighlty/Non-Suspicious 0 ECG Normal 0 Age > 65 2 Risk Factors 1 or 2 Risk Factors 1 Total 3 Risk Factors: Risk Factors: DM, Current or recent (<one month) smoker, HTN, HLP, family history of CAD, obesity. Risk Scores: Score 0 - 3: 2.5% MACE over next 6 weeks - Discharge Home Score 4 - 6: 20.3% MACE over next 6 weeks - Admit for Clinical Observation Score 7 - 10: 72.7% MACE over next 6 weeks - Early Invasive Strategies Course & Med Decision Making: Course & Med Decision Making Pertinent Labs and Imaging studies reviewed. (See chart for details) Throat after patient was brought back to the room. And vitals taken patient demanding discharge home. Begged patient to reconsider his decision to leave however he was insistent on leaving. Did exhibit UCAR capacity. Encourage patient to reduce smoking if not quit. Patient use MDI 2 puffs 4 times a day. Patient take prednisone 50 mg a day. Take Zithromax 500 mg here and then 250 daily for 5 days. Follow-up primary care. Return if any concerns. Impression: 1. COPD exacerbation 2 . AMA 3. Tobacco abuse 4. Alcohol abuse [] Dragon Disclaimer: Dragon Disclaimer: This electronic medical record was generated, in whole or in part, using a voice recognition dictation system. Departure Departure: Referrals: PCP,NO (PCP) Scripts Azithromycin (ZITHROMAX) 250 Mg Tablet 250 MG PO DAILY for ANTI-BIOTIC for 5 Days, #5 TAB 0 Refills Prov: LARY GALAVIZ MD 12/02/20 Prednisone (PREDNISONE) 50 Mg Tablet 50 MG PO DAILY for copd for 5 Days, #5 TAB Prov: LARY GALAVIZ MD 12/02/20 Dragon Disclaimer This chart was dictated in whole or in part using Voice Recognition software in a busy, high-work load, and often noisy Emergency Department environment. It may contain unintended and wholly unrecognized errors or omissions. LARY GALAVIZ MD Dec 02, 2020 04:22
[2020-12-02 04:32] VITALS: BP 121/60
[2020-12-02] MEDS ORDERED: AZIT250T PO (04:54)
[2020-12-02] MEDS ORDERED: PRED50TA PO (04:54)
[2020-12-02] MEDS ORDERED: IPRATRPIUM/ALBUTEROL 0.5/2.5MG 3 ML NEBU. NEB ONE (05:00)
[2020-12-02] MEDS ORDERED: IV RINGERS SOLUTION,LACTATED 1,000 ML IV SCH (05:00)
[2020-12-02] MEDS ORDERED: AZITHROMYCIN 250 MG TABLET. PO ONE (05:00)
[2020-12-02] MEDS ORDERED: methylPREDNISolone SOD SUCC PF 125 MG/2 ML VIAL. IV ONE (05:00)
--- NOTE | 2020-12-02 05:20 | EKG ---
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
== END 2020-12-02 05:10 | disposition left against medical advice (07) ==
LOC: ER 04:18
DX: J44.1 Chronic obstructive pulmonary disease with (acute) exacerbation (principal); F10.20 Alcohol dependence, uncomplicated; I25.10 Atherosclerotic heart disease of native coronary artery without angina pectoris; I11.0 Hypertensive heart disease with heart failure; I50.9 Heart failure, unspecified; J44.9 Chronic obstructive pulmonary disease, unspecified; F03.90 Unspecified dementia, unspecified severity, without behavioral disturbance, psychotic disturbance, mood disturbance, and anxiety; F17.210 Nicotine dependence, cigarettes, uncomplicated; Y90.0 Blood alcohol level of less than 20 mg/100 ml
CPT/HCPCS: 93005; 94640; 96374; 99283; J2930